=== PATIENT | male | born 1945 | race Caucasian/White ===

== ENCOUNTER 2017-09-13 12:59 | Emergency (ER) | payer OTHER ==
[~2017-09-13] VITALS: Ht 193 cm; Wt 127.0 kg
[~2017-09-13 12:59] MED LIST: ALLO300T2 PO; DIOV160T60 PO; OMEP20TA PO; SIMV80TA PO; SYMB160A INH; VENTAER INH
[2017-09-13 13:41] VITALS: BP 156/80; PULSE 91; RESP 20; TEMP 98.2; O2SAT 93
--- NOTE | 2017-09-13 16:29 | PD ---
HPI Chief Complaint: Pain: Acute or Chronic Time Seen by Provider: 16:29 Travel History International Travel<30 days: No Contact w/Intl Traveler<30days: No Traveled to known affect area: No History of Present Illness HPI 71-year-old male presents emergency department with injury to the left hand and wrist. Patient states he tripped and fell last evening with a FOOSH type injury to the left hand and wrist. He now has pain mainly in the ulnar aspect of the wrist. He denies numbness, tingling, or decreased strength only from pain. He denies left elbow or shoulder pain. He denies hitting his head or other complaints of muscle skeletal pain. Pain in the left wrist is 8 out of 10. Patient has history of recurrent gout. He is on allopurinol. He is allergic to colchicine, diclofenac, and tramadol. PFSH Past Medical History Cancer: No High Cholesterol: Yes Diabetes: No Gout: Yes Hepatitis: No Hiatal Hernia: No Hypertension: Yes Respiratory: Yes (COPD) Thyroid Disease: No Past Surgical History Abdominal Surgery: Yes (GASTRECTOMY) Other Surgery: Yes (FB FROM FOOT, BOILS REMOVED FROM FACE, LAC REPAIR RIGHT WRIST.) Social History Alcohol Use: Yes (6 BEERS A DAY NONE SINCE 08/22/09.) Tobacco Use: Yes (1 TO 2 PACKS A DAY) Substance Use: No Allergies-Medications (Allergen,Severity, Reaction): Coded Allergies: colchicine (Unverified Allergy, Severe, GASTRIC EROSION, EDEMA, 09/13/17) diclofenac (Unverified Allergy, Severe, GASTRIC EROSION, 09/13/17) tramadol (Unverified Allergy, Severe, VERTIGO, 09/13/17) Reported Meds & Prescriptions Reported Meds & Active Scripts Active Tramadol (Tramadol HCl) 50 Mg Tab 50 Mg PO Q6H PRN Reported Diovan 160 mg (Valsartan) 160 Mg Tab 160 Mg PO DAILY Simvastatin 80 mg (Simvastatin) 80 Mg Tab 40 Mg PO DAILY Omeprazole 20 mg (Omeprazole) 20 Mg Tab 20 Mg PO DAILY Symbicort (Budesonide/Formoterol Fumarate) 160 Mcg/4.5 Mcg Aer 1 Puff INH BID * SHAKE WELL BEFORE USE * Allopurinol 300 Mg Tab 300 Mg PO DAILY Ventolin Hfa (Albuterol Sulfate) 18 Gm Aero 2 Puff INH BID * SHAKE WELL BEFORE USE * Review of Systems Except as stated in HPI: all other systems reviewed are Neg General / Constitutional: No: Fever Eyes: No: Visual changes HENT: No: Headaches Cardiovascular: No: Chest Pain or Discomfort Respiratory: No: Shortness of Breath Gastrointestinal: No: Abdominal Pain Genitourinary: No: Dysuria Musculoskeletal: Positive: Arthralgias, Limited ROM, Pain Skin: No Rash Neurologic: No: Weakness Psychiatric: No: Depression Endocrine: No: Polydipsia Hematologic/Lymphatic: No: Easy Bruising Physical Exam Narrative GENERAL: Patient appears in mild to moderate distress per SKIN: Warm and dry. Normal color. Normal turgor. Patient has some erythema and swelling over the left ulnar wrist. HEAD: Atraumatic. Normocephalic. EYES: Pupils equal and round. No scleral icterus. No injection or drainage. ENT: No nasal bleeding or discharge. Mucous membranes pink and moist. Pharynx is clear. Airways patent. NECK: Trachea midline. Supple and nontender CARDIOVASCULAR: Regular rate and rhythm. RESPIRATORY: No accessory muscle use. Clear to auscultation. Breath sounds equal bilaterally. MUSCULOSKELETAL: Extremities without clubbing, cyanosis, or edema. No obvious deformities. Patient has pain and tenderness along the left dorsal ulnar wrist. Range of motion is greatly diminished secondary to pain. Neurovascular exam is within normal limits. NEUROLOGICAL: Awake and alert. No obvious cranial nerve deficits. Motor grossly within normal limits. Five out of 5 muscle strength in the arms and legs. Normal speech. PSYCHIATRIC: Appropriate mood and affect; insight and judgment normal. Data Data Last Documented VS Vital Signs Date Time Temp Pulse Resp B/P (MAP) Pulse Ox O2 Delivery O2 Flow Rate FiO2 09/13/17 13:41 98.2 91 20 156/80 (105) 93 Orders Orders Wrist, Complete ([id number]) (09/13/17 16:32) Ice/Cold Pack (09/13/17 16:32) Splinting (09/13/17 ) Sling Cradle Arm (09/13/17 ) MDM Medical Decision Making Medical Screen Exam Complete: Yes Emergency Medical Condition: Yes Differential Diagnosis Trip and fall. Left wrist sprain. Left wrist fracture Narrative Course Patient is medically stable time exam. Ice is applied to the affected area. X-ray of the left wrist is obtained No acute fracture or dislocation is noted on the x-ray. Patient is placed in a ulnar gutter splint for comfort. Patient is placed in a sling for comfort. Patient is given tramadol 50 mg 1 every 6 hours as needed pain #20. Patient to follow-up with his primary care physician in 1 week to ensure resolution. Patient see orthopedic if symptoms persist. Diagnosis Primary Impression: Unspecified sprain of left wrist, initial encounter Patient Instructions: General Instructions, Splint Care (ED), Wrist Injury (ED) Additional Instructions: No acute fracture or dislocation is noted on the x-ray. Patient is placed in a ulnar gutter splint for comfort. Patient is placed in a sling for comfort. Patient is given tramadol 50 mg 1 every 6 hours as needed pain #20. Patient to follow-up with his primary care physician in 1 week to ensure resolution. Patient see orthopedic if symptoms persist. Med/Other Pt SpecificInfo: Prescription(s) given Scripts Tramadol (Tramadol) 50 Mg Tab 50 MG PO Q6H Y for PAIN, #20 TAB 0 Refills Prov: Tony Connelly MD 09/13/17 Disposition: 01 DISCHARGE HOME Condition: Stable Mina Corbin Sep 13, 2017 16:29
[2017-09-13] MEDS ORDERED: TRAM50TA PO (17:19)
[2017-09-13] MEDS ORDERED: HYDR-3516 PO (17:27)
--- NOTE | 2017-09-13 17:39 | RADRPT ---
EXAM DATE/TIME: 09/13/2017 16:38 [facility] COMPARISON: No previous studies available for comparison. INDICATIONS : Fall wrist pain. MEDICAL HISTORY : None. SURGICAL HISTORY : None. ENCOUNTER: Initial ACUITY: 1 day PAIN SCORE: 6/10 LOCATION: Left wrist FINDINGS: There is a well-corticated bony density seen in the expected location of the ulnar styloid likely rig ht representing the residual of a prior fracture. An acute fracture is not clearly identified. The ca rpal bones are normally aligned. The radiocarpal joint is intact. CONCLUSION: Suspected deformity from prior ulnar styloid fracture with a well-corticated bony density seen in thi s region. An acute fracture is not clearly identified. Lemuel Phoenix MD on September 13, 2017 at 17:35 Board Certified Radiologist. This report was verified electronically.
== END 2017-09-13 17:50 | disposition home or self-care (01) ==
LOC: NEPD 12:59
DX: S63.502A Unspecified sprain of left wrist, initial encounter (principal); W01.0XXA Fall on same level from slipping, tripping and stumbling without subsequent striking against object, initial encounter; I10 Essential (primary) hypertension; E78.00 Pure hypercholesterolemia, unspecified; J44.9 Chronic obstructive pulmonary disease, unspecified; M10.9 Gout, unspecified; F17.210 Nicotine dependence, cigarettes, uncomplicated; Z88.8 Allergy status to other drugs, medicaments and biological substances; Z79.899 Other long term (current) drug therapy
CPT/HCPCS: 29125; 73110

== ENCOUNTER 2017-10-12 11:43 | Emergency (ER) | payer MEDICARE, OTHER ==
[~2017-10-12] VITALS: Ht 193 cm; Wt 126.0 kg
[~2017-10-12 11:43] MED LIST changes: +HYDR-3516 PO
[2017-10-12 11:51] VITALS: BP 160/75; PULSE 95; RESP 24; TEMP 98; O2SAT 94
--- NOTE | 2017-10-12 13:01 | PD ---
HPI Chief Complaint: Complaint Time Seen by Provider: 13:00 Travel History International Travel<30 days: No Contact w/Intl Traveler<30days: No Traveled to known affect area: No History of Present Illness HPI 71-year-old male came to the emergency room with history of urinary retention since yesterday morning. Patient says that he has gone only a few drops at a time but still feels like he has to go. He is uncomfortable. He says he had something similar a few years ago when he had gone to [place] and was given Levaquin. He supposed to see a urologist from [place] but has not heard back from them yet. Vital signs were otherwise stable. No history of fever or chills. No history of hematuria. Patient says the discomfort is mostly in the suprapubic area. It is worse on manual pressure on the area. PFSH Past Medical History Narrative Medical List of his past medical, surgical, social and family history is reviewed from the nursing note Cancer: No Cardiovascular Problems: No High Cholesterol: Yes Diabetes: No Gout: Yes Hepatitis: No Hiatal Hernia: No Hypertension: Yes Respiratory: Yes (COPD) Thyroid Disease: No Past Surgical History Abdominal Surgery: Yes (GASTRECTOMY) Other Surgery: Yes (FB FROM FOOT, BOILS REMOVED FROM FACE, LAC REPAIR RIGHT WRIST.) Social History Alcohol Use: Yes Tobacco Use: No Substance Use: No Allergies-Medications (Allergen,Severity, Reaction): Coded Allergies: colchicine (Unverified Allergy, Severe, GASTRIC EROSION, EDEMA, 10/12/17) diclofenac (Unverified Allergy, Severe, GASTRIC EROSION, 10/12/17) tramadol (Unverified Allergy, Severe, VERTIGO, 10/12/17) Comments List of his allergies reviewed from the nursing note. Reported Meds & Prescriptions Reported Meds & Active Scripts Active Reported Flonase Nasal Magna (Fluticasone Nasal Magna) 50 Mcg/Act Magna 100 Mcg EACH NARE BID Valsartan 160 Mg Tab 160 Mg PO DAILY Simvastatin 40 Mg Tab 40 Mg PO HS Omeprazole 20 Mg Tab 20 Mg PO DAILY Spiriva Handihaler (Tiotropium Inh) 18 Mcg Cap 18 Mcg INH DAILY 1 capsule = 18 mcg Symbicort Inh (Budesonide/Formoterol Fumarate) 160-4.5 Mcg/Act Aero 1 Puff INH Q12HR Allopurinol 300 Mg Tab 300 Mg PO DAILY Ventolin Hfa 18 GM Inh (Albuterol Sulfate) 90 Mcg/Act Aer 2 Puff INH BID PRN Narrative Medication List of his home medications reviewed from the nursing note. Review of Systems Except as stated in HPI: all other systems reviewed are Neg Genitourinary: Positive: Decreased Urinary Output Physical Exam Narrative GENERAL: Awake, alert, moderate distress SKIN: Focused skin assessment warm/dry. HEAD: Atraumatic. Normocephalic. EYES: Pupils equal and round. No scleral icterus. No injection or drainage. ENT: No nasal bleeding or discharge. Mucous membranes pink and moist. NECK: Trachea midline. No JVD. CARDIOVASCULAR: Regular rate and rhythm. No murmur appreciated. RESPIRATORY: No accessory muscle use. Clear to auscultation. Breath sounds equal bilaterally. GASTROINTESTINAL: Abdomen soft, non-tender, nondistended. Hepatic and splenic margins not palpable. MUSCULOSKELETAL: No obvious deformities. No clubbing. No cyanosis. No edema. NEUROLOGICAL: Awake and alert. No obvious cranial nerve deficits. Motor grossly within normal limits. Normal speech. PSYCHIATRIC: Appropriate mood and affect; insight and judgment normal. Data Data Last Documented VS Vital Signs Date Time Temp Pulse Resp B/P (MAP) Pulse Ox O2 Delivery O2 Flow Rate FiO2 10/12/17 14:41 10/12/17 14:33 83 16 94 Room Air 10/12/17 13:47 98.0 Orders Orders Urinalysis - C+S If Indicated (10/12/17 13:05) Complete Blood Count With Diff (10/12/17 13:05) Basic Metabolic Panel (Bmp) (10/12/17 13:05) Urinary Catheter Insert/Apply (10/12/17 13:05) Ed Discharge Order (10/12/17 14:22) Bag, Leg 32oz Sterile Large Ea (10/12/17 14:22) Labs Laboratory Tests Test 10/12/17 13:20 10/12/17 13:45 Urine Collection Type CATH Urine Color YELLOW Urine Turbidity CLEAR Urine pH 6.0 Urine Specific [place] 1.010 Urine Protein NEG mg/dL Urine Glucose (UA) NEG mg/dL Urine Ketones NEG mg/dL Urine Occult Blood NEG Urine Nitrite NEG Urine Bilirubin NEG Urine Urobilinogen 0.2 MG/DL Urine Leukocyte Esterase NEG Urine Squamous Epithelial Cells 0-2 /hpf Urine Mucus RARE /lpf Microscopic Urinalysis Comment CULT NOT INDICATED White Blood Count 8.4 TH/MM3 Red Blood Count 4.65 MIL/MM3 Hemoglobin 14.1 GM/DL Hematocrit 42.8 % Mean Corpuscular Volume 92.0 FL Mean Corpuscular Hemoglobin 30.2 PG Mean Corpuscular Hemoglobin Concent 32.8 % Red Cell Distribution Width 13.3 % Platelet Count 231 TH/MM3 Mean Platelet Volume 8.3 FL Neutrophils (%) (Auto) 72.9 % Lymphocytes (%) (Auto) 17.1 % Monocytes (%) (Auto) 5.6 % Eosinophils (%) (Auto) 3.3 % Basophils (%) (Auto) 1.1 % Neutrophils # (Auto) 6.1 TH/MM3 Lymphocytes # (Auto) 1.4 TH/MM3 Monocytes # (Auto) 0.5 TH/MM3 Eosinophils # (Auto) 0.3 TH/MM3 Basophils # (Auto) 0.1 TH/MM3 CBC Comment DIFF FINAL Differential Comment Blood Urea Nitrogen 9 MG/DL Creatinine 1.10 MG/DL Random Glucose 115 MG/DL Calcium Level 8.8 MG/DL Sodium Level 141 MEQ/L Potassium Level 3.5 MEQ/L Chloride Level 109 MEQ/L Carbon Dioxide Level 25.5 MEQ/L Anion Gap 7 MEQ/L Estimat Glomerular Filtration Rate 66 ML/MIN MDM Medical Decision Making Medical Screen Exam Complete: Yes Emergency Medical Condition: Yes Medical Record Reviewed: Yes Differential Diagnosis Urinary retention, BPH, UTI Narrative Course 1:40 PM I have asked the nurse to put a Thomas catheter. Awaiting for an UA and blood test results. 2:22 PM labs are back and within acceptable limits. I will discharge him home with a leg bag. Patient has made more than 600 mL's of urine so far. He says he feels much better. Procedures EKG Prior to Arrival: No Diagnosis Primary Impression: Urinary retention Referrals: Deep Cartagena MD Additional Instructions: Take care of the catheter and the leg bag as instructed to you by the nurse. Follow-up with urology either at [place] or the name and number that has been provided to you from us in this discharge instructions. Return to the ER if condition worsens or any other new concerns. Disposition: 01 DISCHARGE HOME Condition: Stable Chanell Heart MD October 12, 2017 13:01
[2017-10-12 13:41] LABS: BILIRUBIN, URINE NEG (NEG); BLOOD, URINE NEG (NEG); GLUCOSE,URINE NEG (NEG); KETONE, URINE NEG (NEG); NITRITE,URINE NEG (NEG); URINE COLOR YELLOW (YELLW/STRAW); URINE LEUKOCYTE ESTERASE NEG (NEG)
[2017-10-12 13:47] VITALS: BP 160/75; PULSE 95; RESP 16; TEMP 98; O2SAT 94
[2017-10-12] MEDS ORDERED: OMEP20TA93 PO (14:03)
[2017-10-12] MEDS ORDERED: SPIRCAP INH (14:03)
[2017-10-12] MEDS ORDERED: FLUT1SPR5 EACH NARE (14:03)
[2017-10-12] MEDS ORDERED: SYMB160A INH (14:03)
[2017-10-12] MEDS ORDERED: SIMV40TA PO (14:03)
[2017-10-12] MEDS ORDERED: VENTAER INH (14:03)
[2017-10-12] MEDS ORDERED: VALS1TAB65 PO (14:03)
[2017-10-12] MEDS ORDERED: ALLO300T2 PO (14:03)
[2017-10-12 14:05] LABS: AUTOMATED NEUTROPHIL # 6.1 TH/MM3 (1.8-7.7); BASOPHIL # 0.1 TH/MM3 (0-0.2); BASOPHIL % 1.1 % (0.0-2.0); EOSINOPHIL # 0.3 TH/MM3 (0-0.4); EOSINOPHIL % 3.3 % (0.0-4.0); HEMATOCRIT 42.8 % (39.0-51.0); HEMOGLOBIN 14.1 GM/DL (13.0-17.0); LYMPH % 17.1 % (9.0-44.0); LYMPHOCYTE # 1.4 TH/MM3 (1.0-4.8); MEAN CORPUSCULAR HEMOGLOBIN 30.2 PG (27.0-34.0); MEAN CORPUSCULAR HGB CONC 32.8 % (32.0-36.0); MEAN PLATELET VOLUME 8.3 FL (7.0-11.0); MONO % 5.6 % (0.0-8.0); MONOCYTE # 0.5 TH/MM3 (0-0.9); NEUT % 72.9 % (16.0-70.0); PLATELET COUNT 231 TH/MM3 (150-450); RED BLOOD COUNT 4.65 MIL/MM3 (4.50-5.90); RED CELL DISTRIBUTION WIDTH 13.3 % (11.6-17.2); WHITE BLOOD COUNT 8.4 TH/MM3 (4.0-11.0)
[2017-10-12 14:08] LABS: MUCUS URINE RARE /lpf (OCC); SQUAMOUS EPITHELIAL CELL URINE 0-2 /hpf (0-5)
[2017-10-12 14:17] LABS: CALCIUM 8.8 MG/DL (8.5-10.1)
[2017-10-12 14:18] LABS: BICARBONATE 25.5 MEQ/L (21.0-32.0)
[2017-10-12 14:21] LABS: CREATININE 1.1 MG/DL (0.60-1.30)
[2017-10-12 14:33] VITALS: BP 124/67; PULSE 83; RESP 16; O2SAT 94
== END 2017-10-12 14:41 | disposition home or self-care (01) ==
LOC: PHED 11:43
DX: R33.9 Retention of urine, unspecified (principal); I10 Essential (primary) hypertension; J44.9 Chronic obstructive pulmonary disease, unspecified
CPT/HCPCS: 51702; 80048; 81001; 85025

== ENCOUNTER 2018-04-16 20:03 | Inpatient (IN) ==
[2018-04-16] MEDS ORDERED: Tetanus/Diphtheria Toxoid Adult Vaccine Inj 0.5 ML Vial IM ONE (20:19)
[2018-04-16] MEDS ORDERED: ceFAZolin 2 GM Premix Inj 2 GM/50 ML PIGGYBACK IV.SIG ONE (20:20)
[2018-04-16] MEDS ORDERED: Morphine Sulfate Inj 8 MG/ML Vial IV.PUSH ONE (20:22)
--- NOTE | 2018-04-16 20:31 | ED ---
HPI General Chief Complaint: Fall Stated Complaint: Fall/Leg pain Time Seen by Provider: 04/16/18 20:10 Source: patient and EMS Mode of arrival: EMS Limitations: physical limitation History of Present Illness HPI Narrative: Mr Ambriz is a 72 year old male who presents to the ED via EMS with an open left ankle open fracture after a fall at his home. The patient states that he slipped on his terrazzo floors while wearing tennis shoes and fell, although he does not remember the way in which he fell and the lower leg/ ankle injury occurred. He denies dizziness, lightheadedness, or syncope prior to the fall. He denies head trauma or LOC, and denies pain in the back, hips, head, or upper extremities. Upon EMS arrival the left lower leg was angulated, and it was returned to a position of function before transport by [facility]. The patient states his pain was a 5/10 but is now a 6-7/10. He denied pain medication during transport. The patient's PMH is significant for HTN and COPD. He denies drug allergies and his last meal was at 1pm today. He denies any previous injuries to this area. He denies taking any blood thinners. No head injury or loss of consciousness. Denies any pain in any other extremity. Patient still having some numbness. MD complaint: Reports fall Fall from: standing Loss of consciousness: none Symptoms prior to fall: Reports none Location of injury - extremities: Right: lower leg and ankle Related Data Home Medications Medication Instructions Recorded Confirmed Unable to Obtain Home Meds 04/16/18 04/16/18 Allergies Allergy/AdvReac Type Severity Reaction Status Date / Time colchicine Allergy Severe GASTRIC Unverified 04/16/18 20:20 EROSION, EDEMA diclofenac Allergy Severe GASTRIC Unverified 04/16/18 20:20 EROSION tramadol Allergy Severe VERTIGO Unverified 04/16/18 20:20 Review of Systems ROS: all other systems reviewed are negative PMFSH History History Provided By: Patient and Instructor Adjunct Pharmacy Technician / EMT Medical History Medical History Abdominal hernia (Acute) COPD (chronic obstructive pulmonary disease) (Acute) FH: total knee replacement (Acute) GERD (gastroesophageal reflux disease) (Acute) Gout (Acute) Hypertension (Acute) Surgical History Surgical History H/O resection of stomach (Acute) Social History Social History Substance History: No History of Abuse Second Hand Smoke Exposure: No Smoking Status: Former smoker How Often Do You Have a Drink Containing Alcohol: 4 or more times a week Recent Travel in [facility] within the Last 8 Weeks: No Recent Out of Country Travel within the Last 8 Weeks: No Exam Narrative Exam Narrative: GENERAL: Patient is a well developed well nourished male in moderate distress. SKIN: Warm and dry. Patient has an opening on the medial aspect of the left ankle of about 5 cm with piece of the bone of what appears to be the tibia coming out of it. Hard to assess the posterior tibialis pulse. Bleeding noted but minimal. HEAD: Atraumatic. Normocephalic. EYES: Pupils equal and round. No scleral icterus. No injection or drainage. ENT: No nasal bleeding or discharge. Mucous membranes pink and moist. Tongue is midline. No uvula deviation. NECK: Trachea midline. No JVD. CARDIOVASCULAR: Regular rate and rhythm. No murmurs rubs or gallops. RESPIRATORY: No accessory muscle use. Clear to auscultation. Breath sounds equal bilaterally. GASTROINTESTINAL: Abdomen soft, non-tender, nondistended. Hepatic and splenic margins not palpable. MUSCULOSKELETAL: Open fracture of the tibia on the left. Diminished sensation to the left foot. 2 + DP pulse on the left foot. Pain with palpation to the lower leg above the fracture. No pain with palpation of the head or cervical, thoracic, or lumbar spine. No pain with palpation of the upper left leg or left hip. No pain with palpation of the pelvis. NEUROLOGICAL: Awake and alert. No obvious cranial nerve deficits. Motor grossly within normal limits. Five out of 5 muscle strength in the arms and left leg. Normal speech. PSYCHIATRIC: Appropriate mood and affect; insight and judgment normal. Course Initial Documented Vital Signs Temperature 97.8 F 04/16/18 20:11 Pulse Rate 90 04/16/18 20:11 Respiratory Rate 22 04/16/18 20:11 Blood Pressure 152/76 H 04/16/18 20:11 Pulse Oximetry 95 04/16/18 20:11 Last Documented Vital Signs Temperature 97.8 F 04/16/18 20:11 Pulse Rate 113 H 04/16/18 21:02 Respiratory Rate 22 04/16/18 20:11 Blood Pressure 152/76 H 04/16/18 20:11 Pulse Oximetry 95 04/16/18 20:11 Medical Decision Making LENNY Attestation LENNY supervised visit: Yes Attestation: I, Dr. Castellano, have reviewed the advance practice practitioner's documentation and am in agreement, met with the patient face to face, made the diagnosis, and the medical decision making was done by me. See his note for further details. This is a 72-year-old male who was brought in by ambulance for evaluation of fracture/dislocation. Patient reports that he slipped on the surface in his home. He denies head injury or LOC. He experienced immediate pain to his left ankle and was unable to bear weight. He denies pain anywhere else. His pain is severe. He crawled to a telephone and dial 911. Upon enterprise architect arrival, they noticed that the foot appeared to be pulseless with obvious open deformity , so they attempted to reduce the ankle joint. Upon arrival to the emergency department the patient's left ankle is in a makeshift splint. He does have a strong left dorsalis pedis pulse. There is an approximately 7 cm laceration to the medial aspect of the ankle with protruding distal tibia with lacerated tendons noted as well. Patient was given morphine. The exposed bone was irrigated, and reduction was attempted by me, however was unsuccessful. At 8: 50 PM I was able to discuss the case with the on-call orthopedist Dr. Davis who plans on taking the patient to the OR tonight for ORIF. Patient was given Ancef and tetanus here in the emergency department. When explaining the plan with the patient and asking when his last oral intake was, he tells me that he last ate at noon today, however he drinks alcohol daily, drinking 3 beers per hour while awake. His last drink was at 7:00 PM. MDM Narrative Medical decision making narrative: 72-year-old male who presents to the ED for evaluation of left ankle injury. Patient was properly examined and was found to have signs and symptoms consistent with appears to be a open tib-fib fracture with dislocation. My attending Dr. Castellano was made aware of findings and immediately evaluated the patient. Labs and imaging were ordered. Patient was started on IV antibiotics and pain medication. Given tetanus booster. Maintaining himself attempted to reduce the fracture with minimal success. My attending himself spoke with the orthopedic surgeon substation operator conversion who wants to take the patient to the OR tonight. Wants the patient admitted to the medical team. Dr Carrasco agrees to admission to her service. Medical Screen Exam Complete: Yes Emergency Medical Condition: Yes Differential Diagnosis Differential Diagnosis: Open fracture versus tib-fib fracture versus fracture dislocation versus trauma Medical Records Medical records reviewed: Yes I reviewed the patient's medical records. Lab Data Lab results reviewed: Yes I reviewed the patient's lab results. Result diagrams: 04/16/18 20:37 04/16/18 20:37 Lab Results 04/16/18 04/16/18 04/16/18 Range/Units 20:37 20:37 20:37 WBC 19.6 H (4.0-11.0) th/mm3 RBC 4.58 (4.50-5.90) mil/mm3 Hgb 14.9 (13.0-17.0) gm/dL POC Hgb (Calc) Cancelled Hct 44.3 (39.0-51.0) % POC Hct Cancelled MCV 96.7 (80.0-100.0) fL MCH 32.6 (27.0-34.0) pg MCHC 33.7 (32.0-36.0) % RDW 14.2 (11.6-17.2) % Plt Count 205 (150-450) th/mm3 MPV 8.7 (7.0-11.0) fL Neut % (Auto) 86.7 H (16.0-70.0) % Lymph % (Auto) 7.7 L (9.0-44.0) % Mower % (Auto) 5.0 (0.0-8.0) % Eos % (Auto) 0.3 (0.0-4.0) % Baso % (Auto) 0.3 (0.0-2.0) % Neut # (Auto) 17.0 H (1.8-7.7) th/mm3 Lymph # (Auto) 1.5 (1.0-4.8) th/mm3 Mower # (Auto) 1.0 H (0.0-0.9) th/mm3 Eos # (Auto) 0.1 (0.0-0.4) th/mm3 Baso # (Auto) 0.1 (0.0-0.2) th/mm3 WBC Differential . Differential Comment Auto diff final PT 10.5 (9.8-11.6) sec INR 1.0 Ratio APTT 25.4 (23.4-31.7) sec POC Sodium Cancelled Sodium (136-145) meq/L POC Potassium Cancelled Potassium (3.5-5.1) meq/L POC Chloride Cancelled Chloride (98-107) meq/L Carbon Dioxide (21.0-32.0) meq/L Anion Gap (5-15) meq/L POC BUN Cancelled BUN (7-18) mg/dL Creatinine (0.60-1.30) mg/dL POC Creatinine Cancelled Estimated GFR (>89) mL/min POC Glucose Cancelled Random Glucose (74-106) mg/dL Calcium (8.5-10.1) mg/dL Blood Type 04/16/18 04/16/18 Range/Units 20:37 20:37 WBC (4.0-11.0) th/mm3 RBC (4.50-5.90) mil/mm3 Hgb (13.0-17.0) gm/dL POC Hgb (Calc) Hct (39.0-51.0) % POC Hct MCV (80.0-100.0) fL MCH (27.0-34.0) pg MCHC (32.0-36.0) % RDW (11.6-17.2) % Plt Count (150-450) th/mm3 MPV (7.0-11.0) fL Neut % (Auto) (16.0-70.0) % Lymph % (Auto) (9.0-44.0) % Mower % (Auto) (0.0-8.0) % Eos % (Auto) (0.0-4.0) % Baso % (Auto) (0.0-2.0) % Neut # (Auto) (1.8-7.7) th/mm3 Lymph # (Auto) (1.0-4.8) th/mm3 Mower # (Auto) (0.0-0.9) th/mm3 Eos # (Auto) (0.0-0.4) th/mm3 Baso # (Auto) (0.0-0.2) th/mm3 WBC Differential Differential Comment PT (9.8-11.6) sec INR Ratio APTT (23.4-31.7) sec POC Sodium Sodium 140 (136-145) meq/L POC Potassium Potassium 4.0 (3.5-5.1) meq/L POC Chloride Chloride 107 (98-107) meq/L Carbon Dioxide 20.8 L (21.0-32.0) meq/L Anion Gap 12 (5-15) meq/L POC BUN BUN 14 (7-18) mg/dL Creatinine 1.33 H (0.60-1.30) mg/dL POC Creatinine Estimated GFR 53 L (>89) mL/min POC Glucose Random Glucose 98 (74-106) mg/dL Calcium 8.3 L (8.5-10.1) mg/dL Blood Type A Positive Imaging Data Attestation: I personally reviewed and interpreted this imaging study as follows : Radiologist's impression: Chest X-Ray 04/16/18 20:12 CONCLUSION: No acute cardiopulmonary disease. Foot X-Ray 04/16/18 20:12 CONCLUSION: There is a fracture and posterior joint dislocation at the mortise joint. Tibia/Fibula X-Ray 04/16/18 20:12 CONCLUSION: Ankle fracture dislocation. ECG Data Attestation: I personally reviewed and interpreted this ECG as follows: Interpretation: EKG shows sinus tachycardia in the ventricular rate of 106 bpm but no sign of acute ischemia and arrhythmia read by me and attending. Discharge Plan Discharge Disposition Patient Disposition: 30 Still Patient Discharge Details Diagnosis: Ankle fracture, left Physicians Team ED Provider: Tobias Castellano ED Midlevel Provider: Mahad Santiago Primary Care Provider: [facility],Physician 's Attending Provider: Clotilde Carrasco Status ED Status: Admitted Patient
[2018-04-16] MEDS ORDERED: Haloperidol Inj 5 MG/ML Ampul IV.PUSH PRN ×2 (21:16→21:27)
[2018-04-16] MEDS ORDERED: LORazepam 1 MG Tablet PO PRN ×2 (21:16→21:27)
--- NOTE | 2018-04-16 21:20 | XR ---
EXAM DATE: 04/16/2018 9:17 PM EST AGE/SEX: 72 years / Male INDICATIONS: Chest pain after fall. CLINICAL DATA: This is the patient's initial encounter. Patient reports that signs and symptoms have been present for 1 day and indicates a pain score of 10/10. MEDICAL/SURGICAL HISTORY: Chronic obstructive pulmonary disease. . Stomach surgery. COMPARISON: [facility] – [place], CHEST SINGLE AP, 09/28/2011. . FINDINGS: 2 AP erect portable views of the chest were obtained and demonstrate no confluent infiltrates or effu sions. The heart size is at the upper limits of normal with no perihilar edema. The bony thorax is in tact in appearance. There are overlying electrocardiogram leads. CONCLUSION: No acute cardiopulmonary disease. Electronically signed by: Dick Caruso MD 04/16/2018 9:19 PM EST
[2018-04-16 21:21] LABS: Activated Partial Thrombo Time 25.4 sec (23.4-31.7); Prothrombin Time 10.5 sec (9.8-11.6)
--- NOTE | 2018-04-16 21:24 | XR ---
EXAM DATE: 04/16/2018 9:19 PM EST AGE/SEX: 72 years / Male INDICATIONS: Fall, complains of left tibia pain. CLINICAL DATA: This is the patient's initial encounter. Patient reports that signs and symptoms have been present for 1 day and indicates a pain score of 10/10. MEDICAL/SURGICAL HISTORY: Chronic obstructive pulmonary disease. . Stomach surgery. COMPARISON: No prior exams available for comparison. FINDINGS: Multiple views of the left tibia and fibula were obtained and demonstrate that the patient is status post left knee arthroplasty. The arthroplasty components appear intact and in normal alignment. There is a fracture dislocation at the level the ankle with transverse fracture through the medial malleol us and distal fibula. The talus and foot are dislocated laterally approximately 4 cm. There is mild o verriding. The talus and foot are angulated approximately 45 degrees with respect to the tibia. The d istal medial malleolar fracture fragment and distal fibular fracture fragments are also dislocated la terally. There is extensive soft tissue swelling. The talus appears grossly intact. There is diffuse osteopenia. CONCLUSION: Ankle fracture dislocation. Electronically signed by: Dick Caruso MD 04/16/2018 9:22 PM EST
--- NOTE | 2018-04-16 21:26 | XR ---
EXAM DATE: 04/16/2018 9:21 PM EST AGE/SEX: 72 years / Male INDICATIONS: Fall, complains of left foot pain. CLINICAL DATA: This is the patient's initial encounter. Patient reports that signs and symptoms have been present for 1 day and indicates a pain score of 10/10. MEDICAL/SURGICAL HISTORY: Chronic obstructive pulmonary disease. . Stomach surgery. COMPARISON: No prior exams available for comparison. FINDINGS: Limited 2 views of the foot were performed. There is a fracture dislocation at the level of the ankle joint. The talus bone is dislocated posteriorly. There is a large bony fragment most likely from the posterior malleolus. There are moderate degenerative changes involving the mid tarsal bones. There i s a prominent heel spur present. Metatarsals are grossly intact. CONCLUSION: There is a fracture and posterior joint dislocation at the mortise joint. Electronically signed by: Patrice Johnson MD 04/16/2018 9:24 PM EST
[2018-04-16] MEDS ORDERED: Bisacodyl 10 MG Supp RECTAL PRN (21:29)
[2018-04-16] MEDS ORDERED: Acetaminophen 325 MG Tablet PO PRN (21:29)
[2018-04-16] MEDS ORDERED: Sod Chloride 0.9% Inj 1,000 ML IV.SIG SCH (21:30)
--- NOTE | 2018-04-16 21:31 | P.HPIM ---
History of Present Illness History of Present Illness: This is a 72-year-old male with PMH of HTN, COPD and Alcohol Abuse who was brought to the ER by EMS after fall with open left ankle fracture. Pt denies LOC or head trauma, states he simply slipped and fell. On arrival, BP 152/76, HR 90, O2 sat 95% on RA, Afebrile. WBC 19.6. INR 1.0. Creatinine 1.33, previously 1.10 on 10/12/2017. CXR with no acute findings. Foot X-ray fracture and posterior joint dislocation at the mortise joint. Tib-fib X-ray ankle fracture dislocation. Ortho consulted, plan is for surgical intervention tonight. Admits to drinking approx 2-3 drinks every hour that he's awake. - Diagnosis (1) Fall (2) Ankle fracture (3) Alcohol abuse (4) LACI (acute kidney injury) (5) Leukocytosis Inpatient Certification: I certify that the inpatient services were ordered in accordance with Medicare regulations governing the order. This includes certification that hospital inpatient services are reasonable and necessary and in the case of services not specified as inpatient-only under 42 CFR 419.22(n), that they are appropriately provided as inpatient services in accordance to with the 2-midnight benchmark under 43 CFR 412.3(e) Estimated Total Length of Stay (Days): 2 Plans for Post Hospital Care: Not yet determined Review of Systems PAST FAMILY HISTORY: Reviewed. No h/o DM or CAD All other systems reviewed negative except as stated in HPI PMFSH - History History Provided By: Patient, Field Contact Person / EMT - Medical History Medical History: Medical History (Last Reviewed 04/16/18 @ 21:50 by JEANNETTE Jara) Abdominal hernia COPD (chronic obstructive pulmonary disease) FH: total knee replacement GERD (gastroesophageal reflux disease) Gout Hypertension - Surgical History Surgical History: Surgical History (Last Reviewed 04/16/18 @ 21:50 by JEANNETTE Jara) H/O resection of stomach - Tobacco History Second Hand Smoke Exposure: No Tobacco Use In Past 30 Days: No Smoking Status: Former smoker - Alcohol History How Often Do You Have a Drink Containing Alcohol: 4 or more times a week - Substance Use History Substance History: No History of Abuse - Travel History Recent Travel in the [place] Within the Last 8 Weeks: No Recent Travel Out of the Country Within the Last 8 Weeks: No - Immunization History Tetanus Immunization: <5 Years Tetanus Immunization Year if Known: 2017 Medications and Allergies Active Medications: Active Medications Flumazenil (Romazecon Inj) 0.2 mg IV.PUSH Q1M PRN PRN Reason: OVERSEDATION Haloperidol Lactate (Haldol Inj) 1 mg IV.PUSH Q15M PRN PRN Reason: for severe agitation Sodium Chloride (Ns Inj) 1,000 mls @ 1,000 mls/hr IV.SIG BOLUS YVSE Stop: 04/16/18 22:29 Last Admin: 04/16/18 21:24 Dose: 1,000 mls/hr Lorazepam (Ativan Inj) 1 mg IV.PUSH Q4H PRN PRN Reason: for CIWA 8-10 Lorazepam (Ativan Inj) 2 mg IV.PUSH Q15M PRN PRN Reason: for CIWA > 20 Lorazepam (Ativan Inj) 2 mg IV.PUSH Q1H PRN PRN Reason: for CIWA 15-20 Lorazepam (Ativan Inj) 2 mg IV.PUSH Q2H PRN PRN Reason: for CIWA 11-14 Lorazepam (Ativan) 1 mg PO Q4H PRN PRN Reason: for CIWA 8-10 Lorazepam (Ativan) 2 mg PO Q2H PRN PRN Reason: for CIWA 11-14 Allergies Allergy/AdvReac Type Severity Reaction Status Date / Time colchicine Allergy Severe GASTRIC Unverified 04/16/18 20:20 EROSION, EDEMA diclofenac Allergy Severe GASTRIC Unverified 04/16/18 20:20 EROSION tramadol Allergy Severe VERTIGO Unverified 04/16/18 20:20 Home Medications Medication Instructions Recorded Confirmed Type Unable to Obtain Home Meds 04/16/18 04/16/18 History Exam Vital signs: Vital Signs 04/16/18 20:11 04/16/18 21:02 Temperature 97.8 F Pulse Rate 90 113 H Respiratory Rate 22 Blood Pressure 152/76 H Pulse Oximetry 95 Intake & Output 04/16/18 04/16/18 04/17/18 06:59 18:59 06:59 Intake Total 50 / 50 Balance 50 / 50 Weight 130.635 kg Intake: IV 50 / 50 Ancef 2 GM Premix Inj 2 gm In 50 / 50 50 ml @ 100 mls/hr IV.SIG ONCE ONE Rx#:[id number] Narrative: PE: GENERAL: Elderly white male in no acute distress. SKIN: Focused skin assessment warm and dry. HEENT: PERRLA, EOMI. No scleral icterus or conjunctival pallor. No lid lag or facial droop. CARDIOVASCULAR: Regular rate and rhythm. No obvious murmurs to auscultation. No chest tenderness to palpation. RESPIRATORY: No obvious rhonchi or wheezing. Clear to auscultation. Breath sounds equal bilaterally. GASTROINTESTINAL: Abdomen soft, non-tender, nondistended. BS normal. MUSCULOSKELETAL: Extremities without clubbing, cyanosis, or edema. Left ankle w / obvious deformity, open fracture NEUROLOGICAL: Awake, alert and oriented x4. No focal neurologic deficits. Moving both upper and lower extremities spontaneously. PSYCHIATRIC: Appropriate mood and affect. Insight and judgment normal. Results - Labs CBC & Chem 7: 04/16/18 20:37 04/16/18 20:37 - Imaging Impressions Chest X-Ray 04/16/18 20:12 CONCLUSION: No acute cardiopulmonary disease. Foot X-Ray 04/16/18 20:12 CONCLUSION: There is a fracture and posterior joint dislocation at the mortise joint. Tibia/Fibula X-Ray 04/16/18 20:12 CONCLUSION: Ankle fracture dislocation. Caprini VTE Risk Assessment Caprini VTE Risk Assessment: No/Low Risk (score <= 1) Caprini Risk Assessment Model: Point Value = 1 Point Value = 2 Point Value = 3 Point Value = 5 Age 41-60 Minor surgery BMI > 25 kg/m2 Swollen legs Varicose veins or History of unexplained or recurrent spontaneous Oral contraceptives or hormone replacement Sepsis (< 1 month) Serious lung disease, including pneumonia (< 1 month) Abnormal pulmonary function Acute myocardial infarction Congestive heart failure (< 1 month) History of inflammatory bowel disease Medical patient at bed rest Age 61-74 Arthroscopic surgery Major open surgery (> 45 min) Laparoscopic surgery (> 45 min) Malignancy Confined to bed (> 72 hours) Immobilizing plaster cast Central venous access Age >= 75 History of VTE Family history of VTE Factor V Leiden Prothrombin [id number] Lupus anticoagulant Anticardiolipin antibodies Elevated serum homocysteine Heparin-induced thrombocytopenia Other congenital or acquired thrombophilia Stroke (< 1 month) Elective arthroplasty Hip, pelvis, or leg fracture Acute spinal cord injury (< 1 month) Prophylaxis Regimen: Total Risk Factor Score Risk Level Prophylaxis Regimen 0-1 Low Early ambulation 2 Moderate Order ONE of the following: *Sequential Compression Device (SCD) *Heparin 5000 units SQ BID 3-4 Higher Order ONE of the following medications: *Heparin 5000 units SQ TID *Enoxaparin/Lovenox 40 mg SQ daily (WT < 150 kg, CrCl > 30 mL/min) *Enoxaparin/Lovenox 30 mg SQ daily (WT < 150 kg, CrCl > 10-29 mL/min) *Enoxaparin/Lovenox 30 mg SQ BID (WT < 150 kg, CrCl > 30 mL/min) AND/OR *Sequential Compression Device (SCD) 5 or more Highest Order ONE of the following medications: *Heparin 5000 units SQ TID (Preferred with Epidurals) *Enoxaparin/Lovenox 40 mg SQ daily (WT < 150 kg, CrCl > 30 mL/min) *Enoxaparin/Lovenox 30 mg SQ daily (WT < 150 kg, CrCl > 10-29 mL/min) *Enoxaparin/Lovenox 30 mg SQ BID (WT < 150 kg, CrCl > 30 mL/min) AND *Sequential Compression Device (SCD) Assessment and Plan - Assessment (1) Fall Code(s): W19.XXXA - Unspecified fall, initial encounter Status: Acute (2) Ankle fracture Code(s): S82.899A - Other fracture of unspecified lower leg, initial encounter for closed fracture Status: Acute (3) Alcohol abuse Code(s): F10.10 - Alcohol abuse, uncomplicated Status: Acute (4) LACI (acute kidney injury) Code(s): N17.9 - Acute kidney failure, unspecified Status: Acute (5) Leukocytosis Code(s): D72.829 - Elevated white blood cell count, unspecified Status: Acute - Plan A/P: 1. Fall: reports mechanical fall after slipping on terrazo tile, no LOC or head trauma reported, no other injuries noted. 2. Left Ankle Fx: Open. Foot X-ray with fracture and posterior joint dislocation at mortise joint, Tib-fib X-ray with ankle fracture dislocation. Ortho consulted, plan is for emergent surgical intervention tonight, NPO, IVF, analgesics/antiemetics. 3. Alcohol Abuse: admits to having 2-3 drinks/hour while he's awake, very high risk for withdrawal, CIWA, Seizure Precautions, MVT/Thiamine/Folate replacement. 4. Leukocytosis: WBC 19, likely stress reaction, no evidence of infection, afebrile, CXR w/ no acute findings, will repeat labs in am. 5. LACI: Creatinine 1.33, previously 1.10 on 10/12/17, IVF for hydration, repeat labs in am, monitor I/O. 6. DVT Prophylaxis: Anticoagulation post op 7. Social work for d/c planning as needed. 8. Case discussed w/ ER physician at length, labs/records/imaging reviewed by me.
[2018-04-16 21:44] LABS: Baso # (Auto) 0.1 th/mm3 (0.0-0.2); Baso % (Auto) 0.3 % (0.0-2.0); Eos # (Auto) 0.1 th/mm3 (0.0-0.4); Eos % (Auto) 0.3 % (0.0-4.0); Hematocrit 44.3 % (39.0-51.0); Hemoglobin 14.9 gm/dL (13.0-17.0); Lymph # (Auto) 1.5 th/mm3 (1.0-4.8); Lymph % (Auto) 7.7 % (9.0-44.0); Mean Corpuscular HGB Conc 33.7 % (32.0-36.0); Mean Corpuscular Hemoglobin 32.6 pg (27.0-34.0); Mean Corpuscular Volume 96.7 fL (80.0-100.0); Mean Platelet Volume 8.7 fL (7.0-11.0); Neut % (Auto) 86.7 % (16.0-70.0); Platelet Count 205 th/mm3 (150-450); Red Blood Count 4.58 mil/mm3 (4.50-5.90); Red Cell Distribution Width 14.2 % (11.6-17.2); White Blood Count 19.6 th/mm3 (4.0-11.0)
[2018-04-16 21:50] LABS: Calcium 8.3 mg/dL (8.5-10.1); Carbon Dioxide 20.8 meq/L (21.0-32.0)
--- NOTE | 2018-04-16 21:55 | P.CONOP ---
[facility] Orthopedics Consult Note - [facility] Consult date: 04/16/18 Requesting physician: Mahad Santiago Consult reason: fracture Chief complaint: Fall/Leg pain Narrative: 72 year old male presents to the ED after a fall at home where he sustained an open fracture dislocation of the left ankle. He denies losing consciousness prior to the fall. He endorses pain in the left ankle. He it is worse with movement and better with morphine. He has some numbness to the toes. Denies other injury. Review of Systems All other systems reviewed negative except as stated in [facility] PMFSH - History History Provided By: Patient, Agricultural Lender / EMT - Medical History Medical History: Medical History (Last Reviewed 04/16/18 @ 21:50 by Geni Davis MD) Abdominal hernia COPD (chronic obstructive pulmonary disease) FH: total knee replacement GERD (gastroesophageal reflux disease) Gout Hypertension - Surgical History Surgical History: Surgical History (Last Reviewed 04/16/18 @ 21:50 by Geni Davis MD) H/O resection of stomach - Social History I have reviewed the patient's Social History: Yes - Tobacco History Second Hand Smoke Exposure: No Tobacco Use In Past 30 Days: No Smoking Status: Former smoker - Alcohol History How Often Do You Have a Drink Containing Alcohol: 4 or more times a week - Substance Use History Substance History: No History of Abuse - Travel History Recent Travel in the [place] Within the Last 8 Weeks: No Recent Travel Out of the Country Within the Last 8 Weeks: No - Immunization History Tetanus Immunization: <5 Years Tetanus Immunization Year if Known: 2018 Medications and Allergies Active Medications: Active Medications Acetaminophen (Tylenol) 650 mg PO Q4H PRN PRN Reason: Temp > 100.4 Al Hydroxide/Mg Hydroxide (Milk Of Magnsrikanth Liq) 30 ml PO Q12H PRN PRN Reason: Mild Constipation Bisacodyl (Dulcolax Supp) 10 mg RECTAL DAILY PRN PRN Reason: SEVERE CONSITIPATION Flumazenil (Romazecon Inj) 0.2 mg IV.PUSH Q1M PRN PRN Reason: OVERSEDATION Folic Acid (Folic Acid) 1 mg PO DAILY YVES Stop: 04/22/18 08:59 Haloperidol Lactate (Haldol Inj) 1 mg IV.PUSH Q15M PRN PRN Reason: for severe agitation Sodium Chloride (Ns Inj) 1,000 mls @ 1,000 mls/hr IV.SIG BOLUS [facility] Stop: 04/16/18 22:29 Last Admin: 04/16/18 21:24 Dose: 1,000 mls/hr Thiamine HCl 100 mg/ Sodium (Chloride) 101 mls @ 100 mls/hr IV.SIG DAILY [facility] Stop: 04/19/18 21:27 Sodium Chloride (Ns Inj) 1,000 mls @ 100 mls/hr IV.CONT .Q10H YVES Lactulose (Lactulose Liq) 30 ml PO DAILY PRN PRN Reason: SEVERE CONSITIPATION Lorazepam (Ativan) 1 mg PO Q4H PRN PRN Reason: for CIWA 8-10 Lorazepam (Ativan) 2 mg PO Q2H PRN PRN Reason: for CIWA 11-14 Lorazepam (Ativan Inj) 2 mg IV.PUSH Q2H PRN PRN Reason: for CIWA 11-14 Lorazepam (Ativan Inj) 2 mg IV.PUSH Q1H PRN PRN Reason: for CIWA 15-20 Lorazepam (Ativan Inj) 1 mg IV.PUSH Q4H PRN PRN Reason: for CIWA 8-10 Lorazepam (Ativan Inj) 2 mg IV.PUSH Q15M PRN PRN Reason: for CIWA > 20 Morphine Sulfate (Morphine Inj) 2 mg IV.PUSH Q4H PRN PRN Reason: PAIN 6-10 Multivitamins/Minerals (Theragran-M) 1 tab PO DAILY [facility] Stop: 04/22/18 08:59 Ondansetron HCl (Zofran Inj) 4 mg IV.PUSH Q6H PRN PRN Reason: NAUSEA OR VOMITING Senna/Docusate Sodium (Joanne-Colace) 1 tab PO BID [facility] Sennosides (Senokot) 17.2 mg PO Q12H PRN PRN Reason: Moderate Constipation Sodium Chloride (Ns Flush) 2 ml IV.FLUSH PRN PRN PRN Reason: FLUSH AFTER USING IV ACCESS Sodium Chloride (Ns Flush) 2 ml IV.FLUSH BID [facility] Thiamine HCl (Vitamin B1) 100 mg PO DAILY [facility] Allergies Allergy/AdvReac Type Severity Reaction Status Date / Time colchicine Allergy Severe GASTRIC Unverified 04/16/18 20:20 EROSION, EDEMA diclofenac Allergy Severe GASTRIC Unverified 04/16/18 20:20 EROSION tramadol Allergy Severe VERTIGO Unverified 04/16/18 20:20 Home Medications Medication Instructions Recorded Confirmed Type Unable to Obtain Home Meds 04/16/18 04/16/18 History Exam Vital signs: Vital Signs 04/16/18 20:11 04/16/18 21:02 Temperature 97.8 F Pulse Rate 90 113 H Respiratory Rate 22 Blood Pressure 152/76 H Pulse Oximetry 95 Intake & Output 04/16/18 04/16/18 04/17/18 06:59 18:59 06:59 Intake Total 50 / 50 Balance 50 / 50 Weight 130.635 kg Intake: IV 50 / 50 Ancef 2 GM Premix Inj 2 gm In 50 / 50 50 ml @ 100 mls/hr IV.SIG ONCE ONE Rx#:[id number] - Constitutional obese - Routine Neck Exam Present: full ROM - Routine Respiratory Exam Absent: accessory muscle use - Routine Cardiovascular Exam Present: RRR - Routine Extremities Exam Comments: LLE: ankle with open laceration medially with tibia exposed. Toes are warm with good capillary refill Diminished sensation to all toes Remainder of extremities unremarkable - Routine Neurological Exam Present: alert, oriented X3 Results - Labs Result Diagrams: 04/16/18 20:37 04/16/18 20:37 Labs: Laboratory Results - last 24 hr 04/16/18 04/16/18 04/16/18 20:37 20:37 20:37 WBC 19.6 H RBC 4.58 Hgb 14.9 POC Hgb (Calc) Cancelled Hct 44.3 POC Hct Cancelled MCV 96.7 MCH 32.6 MCHC 33.7 RDW 14.2 Plt Count 205 MPV 8.7 Neut % (Auto) 86.7 H Lymph % (Auto) 7.7 L Orange % (Auto) 5.0 Eos % (Auto) 0.3 Baso % (Auto) 0.3 Neut # (Auto) 17.0 H Lymph # (Auto) 1.5 Orange # (Auto) 1.0 H Eos # (Auto) 0.1 Baso # (Auto) 0.1 WBC Differential . Differential Comment Auto diff final PT 10.5 INR 1.0 APTT 25.4 POC Sodium Cancelled POC Potassium Cancelled POC Chloride Cancelled POC BUN Cancelled POC Creatinine Cancelled POC Glucose Cancelled Blood Type 04/16/18 20:37 WBC RBC Hgb POC Hgb (Calc) Hct POC Hct MCV MCH MCHC RDW Plt Count MPV Neut % (Auto) Lymph % (Auto) Orange % (Auto) Eos % (Auto) Baso % (Auto) Neut # (Auto) Lymph # (Auto) Orange # (Auto) Eos # (Auto) Baso # (Auto) WBC Differential Differential Comment PT INR APTT POC Sodium POC Potassium POC Chloride POC BUN POC Creatinine POC Glucose Blood Type A Positive - Diagnostic results Imaging: Impressions Chest X-Ray 04/16/18 20:12 CONCLUSION: No acute cardiopulmonary disease. Foot X-Ray 04/16/18 20:12 CONCLUSION: There is a fracture and posterior joint dislocation at the mortise joint. Tibia/Fibula X-Ray 04/16/18 20:12 CONCLUSION: Ankle fracture dislocation. Assessment and Plan - Assessment and Plan 72 year old male with an open bimalleolar ankle fracture dislocation Plan: To OR urgently for I&D, reduction and fixation of left ankle. Risks, benefits and alternatives discussed with patient. Risks include but not limited to infection, bleeding, damage to neurovascular structures, nonunion, malunion, painful hardware, potential need for further surgical procedures. Patient verbalized understanding and wishes to proceed with surgery. Ancef started in ED, will continue for 48 hours. Tetanus updated. Keep NPO.
[2018-04-16] MEDS ORDERED: Phenylephrine/NS 1000 MCG/10ML Syringe IV.PUSH ONE (22:18)
[2018-04-16] MEDS ORDERED: Succinylcholine Inj 100 MG/5 ML Syringe IV.PUSH ONE (22:18)
[2018-04-16] MEDS ORDERED: Lidocaine PF 1% Inj 5 ML Syringe OTHER ONE (22:18)
[2018-04-16] MEDS ORDERED: Esmolol Bolus Inj 100 MG/10 ML Vial IV.PUSH ONE (22:18)
[2018-04-17] MEDS ORDERED: Sugammadex Inj 200 MG/2 ML Vial IV.PUSH ONE (00:05)
--- NOTE | 2018-04-17 01:33 | P.BOP ---
- Preoperative Diagnosis (1) Ankle fracture - Postoperative Diagnosis (1) Ankle fracture Date of procedure: 04/16/18 Procedure: left ankle I&D, ORIF Implants: Synthes Anesthesia: GETA Surgeon: Geni Davis MD Estimated blood loss (mL): 25 Tourniquet time (min): 120 Pathology: none sent Condition: stable Disposition: PACU
[2018-04-17] MEDS ORDERED: *morphine SULFATE 4 MG/ML PERIprocedure ONLY ONE ×2 (01:45→02:42)
[2018-04-17] MEDS: Sod Chloride 0.9% Inj 1,000 ML IV.CONT SCH ×3 (02:26→17:31)
[2018-04-17] MEDS: ceFAZolin 2 GM Premix Inj 2 GM/50 ML PIGGYBACK IV.SIG SCH ×3 (02:45→18:09)
[2018-04-17] MEDS: Morphine Inj 4 MG/ML Vial IV.PUSH PRN ×5 (05:33→22:15)
[2018-04-17] MEDS: Thiamine Inj 100 MG in Sodium Chlor 0.9% Inj 100 ML IV.SIG SCH ×2 (05:35→09:59)
[2018-04-17] MEDS ORDERED: fentaNYL Citrate Inj 100 MCG/2 ML Ampul ONE (06:02)
[2018-04-17 06:27] LABS: Baso # (Auto) 0.1 th/mm3 (0.0-0.2); Baso % (Auto) 0.3 % (0.0-2.0); Eos % (Auto) 0.1 % (0.0-4.0); Hematocrit 39.7 % (39.0-51.0); Hemoglobin 13.6 gm/dL (13.0-17.0); Lymph # (Auto) 1.6 th/mm3 (1.0-4.8); Lymph % (Auto) 9.4 % (9.0-44.0); Mean Corpuscular HGB Conc 34.3 % (32.0-36.0); Mean Corpuscular Hemoglobin 32.7 pg (27.0-34.0); Mean Corpuscular Volume 95.5 fL (80.0-100.0); Mono # (Auto) 1.4 th/mm3 (0.0-0.9); Mono % (Auto) 8.5 % (0.0-8.0); Neut # (Auto) 13.8 th/mm3 (1.8-7.7); Neut % (Auto) 81.7 % (16.0-70.0); Platelet Count 198 th/mm3 (150-450); Red Blood Count 4.16 mil/mm3 (4.50-5.90); Red Cell Distribution Width 13.8 % (11.6-17.2); White Blood Count 16.9 th/mm3 (4.0-11.0)
[2018-04-17 06:54] LABS: Albumin 3.5 g/dL (3.4-5.0); Anion Gap 9 meq/L (5-15); Blood Urea Nitrogen 14 mg/dL (7-18); Calcium 8.2 mg/dL (8.5-10.1); Carbon Dioxide 22.1 meq/L (21.0-32.0); Chloride 107 meq/L (98-107); Glomerular Filtration Rate 56 mL/min (>89); Glucose,Random 110 mg/dL (74-106); Potassium 3.9 meq/L (3.5-5.1); Sodium 138 meq/L (136-145)
[2018-04-17 06:55] LABS: Alanine Aminotransferase 29 U/L (12-78); Aspartate Aminotransferase 21 U/L (15-37)
[2018-04-17 06:57] LABS: Alkaline Phosphatase 90 U/L (45-117)
--- NOTE | 2018-04-17 07:00 | XR ---
EXAM DATE: 04/17/2018 1:46 AM EST AGE/SEX: 72 years / Male INDICATIONS: ORIF of the left ankle. CLINICAL DATA: This is the patient's subsequent encounter. Patient reports that signs and symptoms h ave been present for 2 days and indicates a pain score of Nonresponsive. MEDICAL/SURGICAL HISTORY: Hypertension. Chronic obstructive pulmonary disease. Gastroesophage al reflux disease. . Resection of the stomach. COMPARISON: [facility] – [place], FOOT LIMITED LEFT 2V, 04/16/2018. . FINDINGS: Patient is status post internal fixation for fractures involving the distal fibula and medial malleol us. There is good position at the mortise joint. The hardware is grossly intact. The previously noted fracture dislocation has been satisfactorily reduced. CONCLUSION: Good position and alignment on this postoperative study. Electronically signed by: Patrice Johnson MD 04/17/2018 6:59 AM EST
[2018-04-17] MEDS: Senna/Docusate Sodium 8.6/50 MG Tablet PO SCH ×3 (09:59→21:08)
[2018-04-17] MEDS: Folic Acid 1 MG Tablet PO SCH (09:59)
[2018-04-17] MEDS: Multivitamin/Minerals Therapeutic Tablet PO SCH (09:59)
--- NOTE | 2018-04-17 12:48 | ECG ---
Date Performed: 04/16/2018 Time Performed: 21:07:49 PTAGE: 72 years EKG: SINUS TACHYCARDIA INCOMPLETE RIGHT BUNDLE BRANCH BLOCK ABNORMAL RHYTHM ECG Since the PREVIOUS TRACING , no significant change noted PREVIOUS TRACIN09/05/2009 10.24 DOCTOR: Jose Huertas Interpretating Date/Time 04/17/2018 12:47:36
--- NOTE | 2018-04-17 14:23 | P.PNOP ---
Subjective Interval history: Stable overnight, complains of appropriate posop left ankle pain. Physical Exam Vital signs: Vital Signs 04/16/18 20:11 04/16/18 21:02 04/16/18 21:27 Temperature 97.8 F Pulse Rate 90 113 H 108 H Respiratory Rate 22 18 Blood Pressure 152/76 H 134/60 Pulse Oximetry 95 93 L 04/17/18 01:30 04/17/18 01:45 04/17/18 01:48 Temperature 98.4 F Pulse Rate 99 H 101 H Respiratory Rate 19 17 17 Blood Pressure 139/65 143/71 H Pulse Oximetry 90 L 91 L 04/17/18 02:00 04/17/18 02:15 04/17/18 02:30 Temperature Pulse Rate 104 H 105 H 108 H Respiratory Rate 15 22 15 Blood Pressure 142/69 H 137/69 125/60 Pulse Oximetry 93 L 94 L 92 L 04/17/18 02:45 04/17/18 02:48 04/17/18 03:00 Temperature Pulse Rate 109 H 109 H Respiratory Rate 17 16 16 Blood Pressure 118/61 116/59 L Pulse Oximetry 94 L 94 L 04/17/18 03:08 04/17/18 04:00 04/17/18 08:00 Temperature 98.2 F 98.9 F 99.3 F Pulse Rate 109 H 102 H 103 H Respiratory Rate 16 16 18 Blood Pressure 129/60 119/63 137/63 Pulse Oximetry 90 L 95 93 L 04/17/18 12:00 Temperature 100 F H Pulse Rate 105 H Respiratory Rate 18 Blood Pressure 132/63 Pulse Oximetry 95 Intake & Output 04/16/18 04/17/18 04/17/18 18:59 06:59 18:59 Intake Total 1999 1050 / 1050 Output Total Balance 1969 / 1969 1050 / 1050 Weight 130.635 kg 130.63 kg Intake: IV 100 / 100 1050 / 1050 NS Inj 1,000 ML @ 100 mls/hr IV 1000 / 1000 .CONT .Q10H YVES Rx#:[id number] Ancef 2 GM Premix Inj 2 gm In 100 / 100 50 / 50 50 ml @ 100 mls/hr IV.SIG Q8H YVES Rx#:[id number] Anesthesia Amount 1900 / 1900 Output: Estimated Blood Loss Other: Weight On Admission 130.63 kg Narrative: left leg splint clean, dry, intact. Toes are warm and well perfused. Able to wiggle all toes. 2+DP pulse. Numbness to toes, which is unchanged from preop exam. Results - Labs CBC & Chem 7: 04/17/18 05:20 04/17/18 05:20 Laboratory Results - last 24 hr 04/16/18 04/16/18 04/16/18 20:37 20:37 20:37 WBC 19.6 H RBC 4.58 Hgb 14.9 POC Hgb (Calc) Cancelled Hct 44.3 POC Hct Cancelled MCV 96.7 MCH 32.6 MCHC 33.7 RDW 14.2 Plt Count 205 MPV 8.7 Neut % (Auto) 86.7 H Lymph % (Auto) 7.7 L [place] % (Auto) 5.0 Eos % (Auto) 0.3 Baso % (Auto) 0.3 Neut # (Auto) 17.0 H Lymph # (Auto) 1.5 [place] # (Auto) 1.0 H Eos # (Auto) 0.1 Baso # (Auto) 0.1 WBC Differential . Differential Comment Auto diff final PT 10.5 INR 1.0 APTT 25.4 POC Sodium Cancelled Sodium POC Potassium Cancelled Potassium POC Chloride Cancelled Chloride Carbon Dioxide Anion Gap POC BUN Cancelled BUN Creatinine POC Creatinine Cancelled Estimated GFR POC Glucose Cancelled Random Glucose Calcium Total Bilirubin AST ALT Alkaline Phosphatase B-Natriuretic Peptide Total Protein Albumin Blood Type Antibody Screen 04/16/18 04/16/18 04/16/18 20:37 20:37 20:37 WBC RBC Hgb POC Hgb (Calc) Hct POC Hct MCV MCH MCHC RDW Plt Count MPV Neut % (Auto) Lymph % (Auto) [place] % (Auto) Eos % (Auto) Baso % (Auto) Neut # (Auto) Lymph # (Auto) [place] # (Auto) Eos # (Auto) Baso # (Auto) WBC Differential Differential Comment PT INR APTT POC Sodium Sodium 140 POC Potassium Potassium 4.0 POC Chloride Chloride 107 Carbon Dioxide 20.8 L Anion Gap 12 POC BUN BUN 14 Creatinine 1.33 H POC Creatinine Estimated GFR 53 L POC Glucose Random Glucose 98 Calcium 8.3 L Total Bilirubin AST ALT Alkaline Phosphatase B-Natriuretic Peptide 10 Total Protein Albumin Blood Type A Positive Antibody Screen Negative 04/17/18 04/17/18 04/17/18 02:17 05:20 05:20 WBC 16.9 H RBC 4.16 L Hgb 13.6 POC Hgb (Calc) Hct 39.7 POC Hct MCV 95.5 MCH 32.7 MCHC 34.3 RDW 13.8 Plt Count 198 MPV 9.0 Neut % (Auto) 81.7 H Lymph % (Auto) 9.4 [place] % (Auto) 8.5 H Eos % (Auto) 0.1 Baso % (Auto) 0.3 Neut # (Auto) 13.8 H Lymph # (Auto) 1.6 [place] # (Auto) 1.4 H Eos # (Auto) 0.0 Baso # (Auto) 0.1 WBC Differential . Differential Comment Auto diff final PT INR APTT POC Sodium Sodium 138 POC Potassium Potassium 3.9 POC Chloride Chloride 107 Carbon Dioxide 22.1 Anion Gap 9 POC BUN BUN 14 Creatinine 1.26 POC Creatinine Estimated GFR 56 L POC Glucose 140 H Random Glucose 110 H Calcium 8.2 L Total Bilirubin 0.5 AST 21 ALT 29 Alkaline Phosphatase 90 B-Natriuretic Peptide Total Protein 7.0 Albumin 3.5 Blood Type Antibody Screen - Imaging Impressions Chest X-Ray 04/16/18 20:12 CONCLUSION: No acute cardiopulmonary disease. Foot X-Ray 04/16/18 20:12 CONCLUSION: There is a fracture and posterior joint dislocation at the mortise joint. Tibia/Fibula X-Ray 04/16/18 20:12 CONCLUSION: Ankle fracture dislocation. Ankle X-Ray 04/17/18 00:00 CONCLUSION: Good position and alignment on this postoperative study. Assessment and Plan - Ortho Post Op Day # 1 - Assessment and Plan 72 year old male POD 1 s/p I&D, ORIF left open ankle fracture-dislocation Plan: NWB LLE in splint PT to mobilize Continue Ancef for 48 hrs for open fracture pain control
--- NOTE | 2018-04-17 15:23 | P.PN ---
Subjective Interval history: Follow-up visit for left open ankle fracture and LACI. Patient is seen and examined sitting up on the side of the bed with physical therapy at bedside assisting with therapy. He denies any fevers, chills, nausea, vomiting, diarrhea. Patient endorses a cough since yesterday, nonproductive, denies any shortness of breath, low-grade temp noted overnight. Nurse also reported patient needed to be straight cath overnight as well as this morning due to retention. Patient reports he has had retention in the past when he receives general anesthesia. Complains of left ankle pain increased with movement. Physical Exam Vital signs: Vital Signs 04/16/18 20:11 04/16/18 21:02 04/16/18 21:27 Temperature 97.8 F Pulse Rate 90 113 H 108 H Respiratory Rate 22 18 Blood Pressure 152/76 H 134/60 Pulse Oximetry 95 93 L 04/17/18 01:30 04/17/18 01:45 04/17/18 01:48 Temperature 98.4 F Pulse Rate 99 H 101 H Respiratory Rate 19 17 17 Blood Pressure 139/65 143/71 H Pulse Oximetry 90 L 91 L 04/17/18 02:00 04/17/18 02:15 04/17/18 02:30 Temperature Pulse Rate 104 H 105 H 108 H Respiratory Rate 15 22 15 Blood Pressure 142/69 H 137/69 125/60 Pulse Oximetry 93 L 94 L 92 L 04/17/18 02:45 04/17/18 02:48 04/17/18 03:00 Temperature Pulse Rate 109 H 109 H Respiratory Rate 17 16 16 Blood Pressure 118/61 116/59 L Pulse Oximetry 94 L 94 L 04/17/18 03:08 04/17/18 04:00 04/17/18 08:00 Temperature 98.2 F 98.9 F 99.3 F Pulse Rate 109 H 102 H 103 H Respiratory Rate 16 16 18 Blood Pressure 129/60 119/63 137/63 Pulse Oximetry 90 L 95 93 L 04/17/18 12:00 Temperature 100 F H Pulse Rate 105 H Respiratory Rate 18 Blood Pressure 132/63 Pulse Oximetry 95 Intake & Output 04/16/18 04/17/18 04/17/18 18:59 06:59 18:59 Intake Total 1999 1050 / 1050 Output Total Balance 1969 / 1970 1050 / 1050 Weight 130.635 kg 130.63 kg Intake: IV 100 / 100 1050 / 1050 NS Inj 1,000 ML @ 100 mls/hr IV 1000 / 1000 .CONT .Q10H YVES Rx#:[id number] Ancef 2 GM Premix Inj 2 gm In 100 / 100 50 / 50 50 ml @ 100 mls/hr IV.SIG Q8H YVES Rx#:[id number] Anesthesia Amount 1900 / 1900 Output: Estimated Blood Loss 30 / 30 Other: Weight On Admission 130.63 kg Narrative: GENERAL: Elderly white male in no acute distress. SKIN: Focused skin assessment warm and dry. HEENT: Pupils equal and round. No scleral icterus or conjunctival pallor. CARDIOVASCULAR: Regular rate and rhythm. No obvious murmurs to auscultation. No chest tenderness to palpation. RESPIRATORY: No obvious rhonchi or wheezing. Clear to auscultation. Breath sounds equal bilaterally. GASTROINTESTINAL: Abdomen soft, non-tender, nondistended. BS normal. MUSCULOSKELETAL: Extremities without clubbing, cyanosis, or edema. Left ankle/ foot in splint, +toe movement, capillary refill <3 seconds/warm, numbness to toes. NEUROLOGICAL: Awake, alert and oriented x4. No focal neurologic deficits. Moving both upper and lower extremities spontaneously. PSYCHIATRIC: Appropriate mood and affect. Insight and judgment normal. Results - Labs CBC & Chem 7: 04/17/18 05:20 04/17/18 05:20 Laboratory Results - last 24 hr 04/16/18 04/16/18 04/16/18 20:37 20:37 20:37 WBC 19.6 H RBC 4.58 Hgb 14.9 POC Hgb (Calc) Cancelled Hct 44.3 POC Hct Cancelled MCV 96.7 MCH 32.6 MCHC 33.7 RDW 14.2 Plt Count 205 MPV 8.7 Neut % (Auto) 86.7 H Lymph % (Auto) 7.[address] [place] % (Auto) 5.0 Eos % (Auto) 0.3 Baso % (Auto) 0.3 Neut # (Auto) 17.0 H Lymph # (Auto) 1.5 [place] # (Auto) 1.0 H Eos # (Auto) 0.1 Baso # (Auto) 0.1 WBC Differential . Differential Comment Auto diff final PT 10.5 INR 1.0 APTT 25.4 POC Sodium Cancelled Sodium POC Potassium Cancelled Potassium POC Chloride Cancelled Chloride Carbon Dioxide Anion Gap POC BUN Cancelled BUN Creatinine POC Creatinine Cancelled Estimated GFR POC Glucose Cancelled Random Glucose Calcium Total Bilirubin AST ALT Alkaline Phosphatase B-Natriuretic Peptide Total Protein Albumin Blood Type Antibody Screen 04/16/18 04/16/18 04/16/18 20:37 20:37 20:37 WBC RBC Hgb POC Hgb (Calc) Hct POC Hct MCV MCH MCHC RDW Plt Count MPV Neut % (Auto) Lymph % (Auto) [place] % (Auto) Eos % (Auto) Baso % (Auto) Neut # (Auto) Lymph # (Auto) [place] # (Auto) Eos # (Auto) Baso # (Auto) WBC Differential Differential Comment PT INR APTT POC Sodium Sodium 140 POC Potassium Potassium 4.0 POC Chloride Chloride 107 Carbon Dioxide 20.8 L Anion Gap 12 POC BUN BUN 14 Creatinine 1.33 H POC Creatinine Estimated GFR 53 L POC Glucose Random Glucose 98 Calcium 8.3 L Total Bilirubin AST ALT Alkaline Phosphatase B-Natriuretic Peptide 10 Total Protein Albumin Blood Type A Positive Antibody Screen Negative 04/17/18 04/17/18 04/17/18 02:17 05:20 05:20 WBC 16.9 H RBC 4.16 L Hgb 13.6 POC Hgb (Calc) Hct 39.7 POC Hct MCV 95.5 MCH 32.7 MCHC 34.3 RDW 13.8 Plt Count 198 MPV 9.0 Neut % (Auto) 81.7 H Lymph % (Auto) 9.4 [place] % (Auto) 8.5 H Eos % (Auto) 0.1 Baso % (Auto) 0.3 Neut # (Auto) 13.8 H Lymph # (Auto) 1.6 [place] # (Auto) 1.4 H Eos # (Auto) 0.0 Baso # (Auto) 0.1 WBC Differential . Differential Comment Auto diff final PT INR APTT POC Sodium Sodium 138 POC Potassium Potassium 3.9 POC Chloride Chloride 107 Carbon Dioxide 22.1 Anion Gap 9 POC BUN BUN 14 Creatinine 1.26 POC Creatinine Estimated GFR 56 L POC Glucose 140 H Random Glucose 110 H Calcium 8.2 L Total Bilirubin 0.5 AST 21 ALT 29 Alkaline Phosphatase 90 B-Natriuretic Peptide Total Protein 7.0 Albumin 3.5 Blood Type Antibody Screen - Imaging Impressions Chest X-Ray 04/16/18 20:12 CONCLUSION: No acute cardiopulmonary disease. Foot X-Ray 04/16/18 20:12 CONCLUSION: There is a fracture and posterior joint dislocation at the mortise joint. Tibia/Fibula X-Ray 04/16/18 20:12 CONCLUSION: Ankle fracture dislocation. Ankle X-Ray 04/17/18 00:00 CONCLUSION: Good position and alignment on this postoperative study. Assessment and Plan - Assessment (1) Fall Code(s): W19.XXXA - Unspecified fall, initial encounter Status: Acute (2) Ankle fracture Code(s): S82.899A - Other fracture of unspecified lower leg, initial encounter for closed fracture Status: Acute (3) Alcohol abuse Code(s): F10.10 - Alcohol abuse, uncomplicated Status: Acute (4) LACI (acute kidney injury) Code(s): N17.9 - Acute kidney failure, unspecified Status: Acute (5) Leukocytosis Code(s): D72.829 - Elevated white blood cell count, unspecified Status: Acute - Plan 72-year-old male with past medical history significant for hypertension, COPD and alcohol abuse who presented to the emergency department on 04/16 after slip and fall at home resulting in left ankle fracture. Mechanical fall, slip and fall Left ankle fracture and posterior joint dislocation at mortise joint - s/p left ankle I&D, ORIF by 04/16 - Pain control with p.o. [place], IV morphine for breakthrough pain - PT following, recommending PT at rehab with wheeled walker Acute kidney injury Creatinine on admission 1.33 -Creatinine this morning 1.26, slightly improved. Continue encouraging oral fluids. - Electrolytes stable for the moment. Leukocytosis, acute 19.6--> 16.9 -Possibly stress related -Cough reported, T-max 100, chest x-ray 04/16 negative -Check UA due to new onset of retention -Only on IV Ancef per ortho - recheck CBC if ongoing temps, repeat chest x-ray if needed. Currently on room air with good oxygen saturation. Hypertension, chronic -BP relatively controlled off valsartan, hold for the moment and continue monitoring blood pressures. Alcohol abuse - CIWA, seizure precautions, MTV/ Thiamine/ Folate. Urinary retention -Patient reports a history of retention requiring several weeks of Thomas catheterization following exposure to anesthesia. -Maintain Thomas catheter, start bethanechol DVT prophylaxis- Per ortho recommendations, SCD to RLE Discussed Condition With: Patient and RN
[2018-04-17] MEDS ORDERED: ALBUTEROL SULFATE 90 MCG INHALATION SCH (21:00)
[2018-04-17] MEDS: Budesonide-Formoterol 160/4.5 MCG 6 GM Inhaler INH SCH (22:12)
[2018-04-18] MEDS: ceFAZolin 2 GM Premix Inj 2 GM/50 ML PIGGYBACK IV.SIG SCH ×3 (02:18→17:09)
[2018-04-18] MEDS: Sod Chloride 0.9% Inj 1,000 ML IV.CONT SCH ×3 (02:19→13:31)
[2018-04-18] MEDS: Folic Acid 1 MG Tablet PO SCH (08:05)
[2018-04-18] MEDS: Allopurinol 300 MG Tablet PO SCH (08:05)
[2018-04-18] MEDS: Multivitamin/Minerals Therapeutic Tablet PO SCH (08:06)
[2018-04-18] MEDS: Senna/Docusate Sodium 8.6/50 MG Tablet PO SCH ×2 (08:07→20:11)
[2018-04-18] MEDS: Budesonide-Formoterol 160/4.5 MCG 6 GM Inhaler INH SCH ×2 (08:07→20:14)
[2018-04-18] MEDS: Thiamine Inj 100 MG in Sodium Chlor 0.9% Inj 100 ML IV.SIG SCH (09:30)
--- NOTE | 2018-04-18 10:37 | P.PN ---
Subjective Interval history: Follow-up visit for left open ankle fracture and LACI. Patient is seen and examined sitting up in bed with son and nurse at bedside. He denies any chills , nausea, vomiting, diarrhea, cough, shortness of breath or chest pain. Reports pain relief with medications. Discussed with patient discharged to rehab center, both patient and son agree. Physical Exam Vital signs: Vital Signs 04/17/18 12:00 04/17/18 16:00 04/17/18 20:00 Temperature 100 F H 98.3 F 99.0 F Pulse Rate 105 H 97 H 88 Respiratory Rate 18 19 17 Blood Pressure 132/63 145/70 H 118/60 Pulse Oximetry 95 96 95 04/18/18 00:00 04/18/18 08:00 Temperature 98.7 F 97.7 F Pulse Rate 88 92 H Respiratory Rate 18 18 Blood Pressure 122/63 138/62 Pulse Oximetry 96 95 Intake & Output 04/17/18 04/18/18 04/18/18 18:59 06:59 18:59 Intake Total 2099 1050 / 1050 Output Total 6975 / 6975 Balance 2099 / 2099 -5925 / -5925 Weight 130.63 kg 128.4 kg Intake: IV 2099 1050 / 1050 NS Inj 1,000 ML @ 100 mls/hr IV 1999 / 1999 1000 / 1000 .CONT .Q10H YVES Rx#:[id number] Ancef 2 GM Premix Inj 2 gm In 100 / 100 50 / 50 50 ml @ 100 mls/hr IV.SIG Q8H YVES Rx#:[id number] Output: Urine Amount (Catheter) 6975 / 6975 Indwelling Urethral Catheter 6975 / 6975 Other: Date of Last Bowel Movement 03/19/18 03/18/18 03/18/18 Weight On Admission 130.63 kg Narrative: GENERAL: Elderly white male in no acute distress. SKIN: Focused skin assessment warm and dry. HEENT: Pupils equal and round. No scleral icterus or conjunctival pallor. CARDIOVASCULAR: Regular rate and rhythm. No obvious murmurs to auscultation. No chest tenderness to palpation. RESPIRATORY: No obvious rhonchi or wheezing. Clear to auscultation. Breath sounds equal bilaterally. GASTROINTESTINAL: Abdomen soft, non-tender, nondistended. BS normal. MUSCULOSKELETAL: Extremities without clubbing, cyanosis, or edema. Left ankle/ foot in splint, +toe movement, capillary refill <3 seconds/warm, numbness to toes. NEUROLOGICAL: Awake, alert and oriented x4. No focal neurologic deficits. Moving both upper and lower extremities spontaneously. PSYCHIATRIC: Appropriate mood and affect. Insight and judgment normal. - Urinary Catheter Management Indwelling Urethral Catheter Cath placed during this visit: yes Reason for continuing: Acute urinary retention Insertion date: 04/17/18 Insertion time: 11:00 Results - Labs CBC & Chem 7: 04/17/18 05:20 04/17/18 05:20 Laboratory Results - last 24 hr 04/18/18 07:54 POC Glucose 158 H Assessment and Plan - Assessment (1) Fall Code(s): W19.XXXA - Unspecified fall, initial encounter Status: Acute (2) Ankle fracture Code(s): S82.899A - Other fracture of unspecified lower leg, initial encounter for closed fracture Status: Acute (3) Alcohol abuse Code(s): F10.10 - Alcohol abuse, uncomplicated Status: Acute (4) LACI (acute kidney injury) Code(s): N17.9 - Acute kidney failure, unspecified Status: Acute (5) Leukocytosis Code(s): D72.829 - Elevated white blood cell count, unspecified Status: Acute - Plan 72-year-old male with past medical history significant for hypertension, COPD and alcohol abuse who presented to the emergency department on 04/16 after slip and fall at home resulting in left ankle fracture. Mechanical fall, slip and fall Left ankle fracture and posterior joint dislocation at [facility] joint - s/p left ankle I&D, ORIF by 04/16 - Pain control with p.o. [place], DC IV morphine, has not used any as of today. - PT following, recommending PT at rehab with wheeled walker Acute kidney injury Creatinine on admission 1.33 -Creatinine 1.26, slightly improved. Continue encouraging oral fluids. - Electrolytes stable for the moment, recheck BMP in the morning. Leukocytosis, acute 19.6--> 16.9 -Possibly stress related -Low-grade temp, otherwise asymptomatic, chest x-ray 04/16 negative -New onset of retention, UA yet to be collected -On IV Ancef per ortho - recheck CBC in the a.m., on room air with no further reports of coughing. Hypertension, chronic -BP relatively controlled off valsartan, hold for the moment and continue monitoring blood pressures. Alcohol abuse - CIWA, seizure precautions, MTV/ Thiamine/ Folate. Urinary retention -Patient reports a history of retention requiring several weeks of Thomas catheterization following exposure to anesthesia. -Maintain Thomas catheter, continue bethanechol, if going to rehab can DC with Thomas and do bladder training at rehab. DVT prophylaxis- Per ortho recommendations, SCD to RLE Discussed Condition With: Patient, son and police manager Planning: Case management has reached out to kita Keller. Needs to complete IV Ancef and clearance by Ortho.
[2018-04-18 20:13] LABS: Bilirubin,Urine Negative (Negative); Clarity,Urine Clear (Clear); Color,Urine Yellow (Yellw/Straw); Glucose,Urine (UA) Negative (Negative); Leukocyte Esterase,Urine Trace (Negative); Nitrite,Urine Negative (Negative); Specific Gravity,Urine 1.012 (1.002-1.035); Squamous Epithelial Cell,Urine <1 /hpf (0-5)
--- NOTE | 2018-04-18 21:54 | P.PNOP ---
Subjective Interval history: Stable overnight, complains of pain to left ankle, improved today. Physical Exam Vital signs: Vital Signs 04/18/18 00:00 04/18/18 08:00 04/18/18 09:00 Temperature 98.7 F 97.7 F Pulse Rate 88 92 H 97 H Respiratory Rate 18 18 Blood Pressure 122/63 138/62 Pulse Oximetry 96 95 04/18/18 11:26 04/18/18 12:00 04/18/18 13:30 Temperature 97.9 F Pulse Rate 85 81 Respiratory Rate 18 7 L Blood Pressure 103/58 L Pulse Oximetry 95 04/18/18 16:00 04/18/18 19:20 04/18/18 21:18 Temperature 98.7 F 98.6 F Pulse Rate 81 91 H Respiratory Rate 18 18 18 Blood Pressure 121/56 L 119/57 L Pulse Oximetry 95 96 Intake & Output 04/18/18 04/18/18 04/19/18 06:59 18:59 06:59 Intake Total 1050 / 1050 1151 / 1151 Output Total 6975 / 6975 2300 / 2300 Balance -5925 / -5925 -1149 / -1149 Weight 128.4 kg Intake: IV 1050 / 1050 1151 / 1151 NS Inj 1,000 ML @ 100 mls/hr IV 1000 / 1000 1000 / 1000 .CONT .Q10H YVES Rx#:[id number] Thiamine Inj 100 MG In NS Inj 101 / 101 100 ML @ 100 mls/hr IV.SIG DAILY YVES Rx#:[id number] Ancef 2 GM Premix Inj 2 gm In 50 / 50 50 / 50 50 ml @ 100 mls/hr IV.SIG Q8H YVES Rx#:[id number] Output: Urine 2300 / 2300 Urine Amount (Catheter) 6975 / 6975 Indwelling Urethral Catheter 6975 / 6975 Other: Date of Last Bowel Movement 03/18/18 03/18/18 Narrative: left leg splint in place, clean/dry/intact. 2+DP. Wiggles all toes. Numbness to toes. - Urinary Catheter Management Indwelling Urethral Catheter Cath placed during this visit: yes Reason for continuing: Acute urinary retention Insertion date: 04/17/18 Insertion time: 11:00 Results - Labs CBC & Chem 7: 04/17/18 05:20 04/17/18 05:20 Laboratory Results - last 24 hr 04/18/18 04/18/18 04/18/18 07:54 16:12 19:55 POC Glucose 158 H 145 H Urine Color Yellow Urine Clarity Clear Urine pH 5.0 Ur Specific [place] 1.012 Urine Protein Negative Urine Glucose (UA) Negative Urine Ketones Negative Urine Occult Blood Negative Urine Nitrate Negative Urine Bilirubin Negative Urine Urobilinogen 2.0 H Ur Leukocyte Esterase Trace H Urine RBC Less than 1 Urine WBC 4 Ur Squamous Epith Cells <1 Micro UA Comment Cath-culture not ind Ur Microscopic Review Not Reportable Urine Culture Comments Cath-cult not ind 04/18/18 20:14 POC Glucose 150 H Urine Color Urine Clarity Urine pH Ur Specific [place] Urine Protein Urine Glucose (UA) Urine Ketones Urine Occult Blood Urine Nitrate Urine Bilirubin Urine Urobilinogen Ur Leukocyte Esterase Urine RBC Urine WBC Ur Squamous Epith Cells Micro UA Comment Ur Microscopic Review Urine Culture Comments Assessment and Plan - Assessment and Plan 72 year old male POD 2 s/p I&D, ORIF left open ankle fracture-dislocation Plan: NWB LLE in splint PT to mobilize Continue Ancef for 48 hrs for open fracture, completed today pain control Clear for discharge from orthopedic standpoint, follow up in 1-2 weeks
[2018-04-19] MEDS: Sod Chloride 0.9% Inj 1,000 ML IV.CONT SCH ×4 (00:55→19:50)
[2018-04-19 06:30] LABS: Baso % (Auto) 0.5 % (0.0-2.0); Eos # (Auto) 0.4 th/mm3 (0.0-0.4); Eos % (Auto) 4.3 % (0.0-4.0); Hematocrit 34.4 % (39.0-51.0); Lymph # (Auto) 1.7 th/mm3 (1.0-4.8); Lymph % (Auto) 17.3 % (9.0-44.0); Mean Corpuscular HGB Conc 34.9 % (32.0-36.0); Mean Corpuscular Hemoglobin 33.5 pg (27.0-34.0); Mean Corpuscular Volume 95.9 fL (80.0-100.0); Mean Platelet Volume 8.6 fL (7.0-11.0); Mono % (Auto) 10.1 % (0.0-8.0); Neut # (Auto) 6.6 th/mm3 (1.8-7.7); Neut % (Auto) 67.8 % (16.0-70.0); Platelet Count 144 th/mm3 (150-450); Red Blood Count 3.59 mil/mm3 (4.50-5.90); Red Cell Distribution Width 13.8 % (11.6-17.2); White Blood Count 9.7 th/mm3 (4.0-11.0)
[2018-04-19 06:48] LABS: Calcium 7.9 mg/dL (8.5-10.1); Carbon Dioxide 29.8 meq/L (21.0-32.0); Potassium 3.6 meq/L (3.5-5.1)
[2018-04-19] MEDS: Folic Acid 1 MG Tablet PO SCH (09:33)
[2018-04-19] MEDS: Allopurinol 300 MG Tablet PO SCH (09:33)
[2018-04-19] MEDS: Multivitamin/Minerals Therapeutic Tablet PO SCH (09:33)
[2018-04-19] MEDS: Budesonide-Formoterol 160/4.5 MCG 6 GM Inhaler INH SCH ×2 (09:35→20:48)
[2018-04-19] MEDS: Thiamine Inj 100 MG in Sodium Chlor 0.9% Inj 100 ML IV.SIG SCH (09:41)
[2018-04-19] MEDS: Senna/Docusate Sodium 8.6/50 MG Tablet PO SCH ×2 (09:48→20:48)
--- NOTE | 2018-04-19 16:06 | P.PNIM ---
Subjective Interval history: Follow up left open ankle fracture and LACI Patient states he has not been able to rest overnight due to frequent interruptions. Left ankle pain controlled at present time. Patient denies cough , fevers or chills. He is tolerating diet. Physical Exam Vital signs: Last Vital Signs Temp 98.4 F 04/19/18 12:00 Pulse 85 04/19/18 12:00 Resp 16 04/19/18 12:00 BP 105/56 L 04/19/18 12:00 Pulse Ox 93 L 04/19/18 12:00 Intake & Output 04/17/18 04/18/18 04/19/18 04/20/18 06:59 06:59 06:59 06:59 Intake Total 3000 / 3000 3150 / 3150 2662 / 2662 Output Total 6975 / 6975 4200 / 4200 Balance 2970 / 2970 -3825 / -3825 -1538 / -1538 Weight 130.635 kg 128.4 kg 137.9 kg Urinary Catheter Management Indwelling Urethral Catheter: Cath placed during this visit: yes Urethral indwelling: Yes Reason for continuing: Acute urinary retention Insertion date: 04/17/18 Insertion time: 11:00 Results Labs CBC & Chem 7: 04/19/18 05:12 04/19/18 05:12 Assessment and Plan Plan 72-year-old male with past medical history significant for hypertension, COPD and alcohol abuse who presented to the emergency department on 04/16 after slip and fall at home resulting in left ankle fracture. Mechanical fall, slip and fall - evaluated 04/19/18 Left ankle fracture and posterior joint dislocation at [facility] - s/p left ankle I&D, ORIF by 04/16 - Pain control with p.o. Srinath, MUKESH IV morphine, has not used any as of today. - PT following, recommending PT at rehab with wheeled walker Acute kidney injury - evaluated 04/19/18, resolved Creatinine on admission 1.33 -Creatinine 0.95 and improved. Continue encouraging oral fluids. - Electrolytes stable for the moment, monitor closely Leukocytosis, acute - evaluated 04/19/18, resolved 19.6--> 16.9 --> 9.7 -Possibly stress related -Low-grade temp, otherwise asymptomatic, chest x-ray 11/30 negative -New onset of retention, UA yet to be collected -On IV Ancef per ortho -recheck CBC in the a.m., on room air with no further reports of coughing. Hypertension, chronic - evaluated 04/19/18, normotensive -BP relatively controlled off valsartan, hold for the moment and continue monitoring blood pressures. Alcohol abuse - evaluated 04/19/18 - CIWA, seizure precautions, MTV/ Thiamine/ Folate. Urinary retention - evaluated 04/19/18 -Patient reports a history of retention requiring several weeks of Thomas catheterization following exposure to anesthesia. -Maintain Thomas catheter, continue bethanechol, if going to rehab can DC with Thomas and do bladder training at rehab. DVT prophylaxis- Per ortho recommendations, SCD to RLE Discharge Planning: CM arranging for short term rehab, possible d/c tomorrow Progress Note: Quality VTE Deep Vein Thrombosis/Pulmonary Embolism Present on Admission: No
--- NOTE | 2018-04-19 23:07 | P.PNOP ---
Subjective Interval history: No overnight events. Reports some improvement in left ankle pain. Physical Exam Vital signs: Vital Signs 04/18/18 23:47 04/19/18 03:36 04/19/18 08:00 Temperature 98.7 F 98.0 F 98.8 F Pulse Rate 85 90 85 Respiratory Rate 18 18 18 Blood Pressure 117/59 L 111/59 L 112/57 L Pulse Oximetry 95 94 L 92 L 04/19/18 12:00 04/19/18 16:00 04/19/18 20:41 Temperature 98.4 F 98.2 F 98.3 F Pulse Rate 85 79 82 Respiratory Rate 16 18 16 Blood Pressure 105/56 L 116/65 131/61 Pulse Oximetry 93 L 94 L 92 L Intake & Output 04/19/18 04/19/18 04/20/18 06:59 18:59 06:59 Intake Total 1461 / 1461 2341 / 2341 Output Total 1900 / 1900 1050 / 1050 Balance -439 / -439 1291 / 1291 Weight 137.9 kg Intake: IV 1101 / 1101 1101 / 1101 NS Inj 1,000 ML @ 100 mls/hr IV 1000 / 1000 1000 / 1000 .CONT .Q10H YVES Rx#:[id number] Thiamine Inj 100 MG In NS Inj 101 / 101 100 ML @ 100 mls/hr IV.SIG DAILY YVES Rx#:[id number] Oral 360 / 360 1240 / 1240 Output: Urine 1900 / 1900 1050 / 1050 Other: Date of Last Bowel Movement 04/17/18 04/17/18 # Bowel Movements 0 Narrative: LLE splint c/d/i, toes warm with good capillary refill, numbness present to toes - Urinary Catheter Management Indwelling Urethral Catheter Cath placed during this visit: yes Urethral indwelling: Yes Reason for continuing: Acute urinary retention Insertion date: 04/17/18 Insertion time: 11:00 Results - Labs CBC & Chem 7: 04/19/18 05:12 04/19/18 05:12 Laboratory Results - last 24 hr 04/19/18 04/19/18 05:12 05:12 WBC 9.7 RBC 3.59 L Hgb 12.0 L Hct 34.4 L MCV 95.9 MCH 33.5 MCHC 34.9 RDW 13.8 Plt Count 144 L MPV 8.6 Neut % (Auto) 67.8 Lymph % (Auto) 17.3 [place] % (Auto) 10.1 H Eos % (Auto) 4.3 H Baso % (Auto) 0.5 Neut # (Auto) 6.6 Lymph # (Auto) 1.7 [place] # (Auto) 1.0 H Eos # (Auto) 0.4 Baso # (Auto) 0.0 WBC Differential . Differential Comment Auto diff final Sodium 141 Potassium 3.6 Chloride 106 Carbon Dioxide 29.8 Anion Gap 5 BUN 12 Creatinine 0.95 Estimated GFR 78 L Random Glucose 99 Calcium 7.9 L Assessment and Plan - Assessment and Plan 72 year old male POD 3 s/p I&D, ORIF left open ankle fracture-dislocation Plan: NWB LLE in splint PT to mobilize pain control Clear for discharge from orthopedic standpoint, follow up in 1-2 weeks
[2018-04-20] MEDS: Sod Chloride 0.9% Inj 1,000 ML IV.CONT SCH (04:58)
[2018-04-20] MEDS: Multivitamin/Minerals Therapeutic Tablet PO SCH (08:32)
[2018-04-20] MEDS: Folic Acid 1 MG Tablet PO SCH (08:32)
[2018-04-20] MEDS: Senna/Docusate Sodium 8.6/50 MG Tablet PO SCH (08:32)
[2018-04-20] MEDS: Allopurinol 300 MG Tablet PO SCH (08:32)
[2018-04-20] MEDS: Budesonide-Formoterol 160/4.5 MCG 6 GM Inhaler INH SCH (08:33)
--- NOTE | 2018-04-20 11:05 | P.DS ---
DS: Providers Date of admission: 04/16/18 21:45 Primary care physician: [facility] Consults: 04/16/18 21:27 Consult to Orthopedic Surgery Routine Consulting Provider: Geni Davis Reason for Consultation: Left Ankle Fx, no need to re-call Notified:: Service Spoke with:: REESE Date Notified:: 04/16/18 Time Notified:: 21:55 Ordering Provider: DUONG 04/17/18 08:12 HUB Only Consult Order Routine Consulting Provider: Ovi Dior 04/18/18 10:45 HUB Only Consult Order Routine Consulting Provider: Oleg Caldwell Brief History from admission: This is a 72-year-old male with PMH of HTN, COPD and Alcohol Abuse who was brought to the ER by EMS after fall with open left ankle fracture. Pt denies LOC or head trauma, states he simply slipped and fell. On arrival, BP 152/76, HR 90, O2 sat 95% on RA, Afebrile. WBC 19.6. INR 1.0. Creatinine 1.33, previously 1.10 on 10/12/2017. CXR with no acute findings. Foot X-ray fracture and posterior joint dislocation at the mortise joint. Tib-fib X-ray ankle fracture dislocation. Ortho consulted, plan is for surgical intervention tonight. Admits to drinking approx 2-3 drinks every hour that he's awake. DS: Diagnosis Discharge Diagnosis (1) Ankle fracture: Status: Acute Diagnosis: Principal (2) LACI (acute kidney injury): Status: Acute Diagnosis: Principal (3) Leukocytosis: Status: Acute Diagnosis: Principal (4) Alcohol abuse: Status: Acute Diagnosis: Secondary (5) Urinary retention: Status: Acute Diagnosis: Secondary (6) Fall: Status: Acute Diagnosis: Principal (7) Hypertension: Status: Acute Diagnosis: Secondary DS: Summary 72-year-old male with past medical history significant for hypertension, COPD and alcohol abuse who presented to the emergency department on 04/16 after slip and fall at home resulting in left ankle fracture. Mechanical fall, slip and fall Left ankle fracture and posterior joint dislocation at mortise joint - s/p left ankle I&D, ORIF by 04/16 - Pain control with p.o. El[place] - PT recommended PT at rehab with wheeled walker -NWB LLE in splint -Clear for discharge from orthopedic standpoint, follow up in 1-2 weeks Acute kidney injury - resolved Creatinine on admission 1.33 -Creatinine 0.95 and improved Leukocytosis, acute - resolved 19.6--> 16.9 --> 9.7 Hypertension, chronic - normotensive -BP relatively controlled off valsartan Alcohol abuse -encouraged cessation Urinary retention -Patient reports a history of retention requiring several weeks of Thomas catheterization following exposure to anesthesia. -Maintain Thomas catheter, continue bethanechol, if going to rehab can DC with Thomas and do bladder training at rehab. [employer] Prescription Drug Monitoring Database has been queried and verified prior to prescribing the controlled substance. Time Spent with Patient Total time spent providing and/or coordinating discharge services: Greater than 30 minutes Status at Discharge Functional status at discharge: uses cane/walker Overall status at discharge: patient is progressing back to baseline Quality: VTE Deep Vein Thrombosis/Pulmonary Embolism Present on Admission: No Exam Narrative Exam Narrative: GENERAL: no acute distress, well developed, well nourished SKIN: Warm and dry. HEAD: Atraumatic. Normocephalic. EYES: Pupils equal and round. No scleral icterus. No injection or drainage. ENT: No nasal bleeding or discharge. Mucous membranes pink and moist. NECK: Trachea midline. No JVD. CARDIOVASCULAR: Regular rate and rhythm. RESPIRATORY: No accessory muscle use. Clear to auscultation. Breath sounds equal bilaterally. GASTROINTESTINAL: Abdomen soft, non-tender, nondistended. MUSCULOSKELETAL: No obvious deformities. Left ankle with splint, toes warm, good capillary refill NEUROLOGICAL: Awake and alert. No obvious cranial nerve deficits. Motor grossly within normal limits. Five out of 5 muscle strength in the arms and legs. Normal speech. PSYCHIATRIC: Appropriate mood and affect; insight and judgment normal. Results Impressions ITS Impressions Chest X-Ray 04/16/18 20:12 CONCLUSION: No acute cardiopulmonary disease. Foot X-Ray 04/16/18 20:12 CONCLUSION: There is a fracture and posterior joint dislocation at the mortise joint. Tibia/Fibula X-Ray 04/16/18 20:12 CONCLUSION: Ankle fracture dislocation. Ankle X-Ray 04/17/18 00:00 CONCLUSION: Good position and alignment on this postoperative study. Discharge Plan Discharge Disposition Patient Disposition: Discharge to SNF Discharge Condition Condition: Stable Discharge Order Discharge Orders: Discharge Order (Routine); Ordered 04/20/18 Ordered By: Maribeth Greene Discharge Details Anticipated Discharge Date: 04/20/18 Physicians Team ED Provider: Tobias Castellano ED Midlevel Provider: Mahad Santiago Primary Care Provider: [facility] Attending Provider: Oneil Clark Other Providers: Geni Davis ; Ovi,Carlos Aa ; [employer] Rxs /Orders / Referrals /Forms Prescriptions: New bethanechol chloride [Urecholine] 10 mg Tablet 10 mg PO TID Qty: 90 RF: 0 sennosides-docusate sodium [Senna Plus] 8.6-50 mg Tablet 1 tab PO BID Qty: 60 RF: 0 thiamine HCl (vitamin B1) 100 mg Tablet 100 mg PO DAILY Qty: 30 RF: 0 hydrocodone-acetaminophen 10-325 mg Tablet 1 tab PO Q4H PRN (Reason: Pain 6-10) Qty: 12 RF: 0 folic acid 1 mg Tablet 1 mg PO DAILY Qty: 30 RF: 0 scpsbpey-zfhm-AX-calcium-mins [Thera M Plus (ferrous fumarat)] 9 mg iron-400 mcg Tablet 1 tab PO DAILY Qty: 30 RF: 0 Continue simvastatin 40 mg Tablet 40 mg PO QPM RF: 0 allopurinol 300 mg Tablet 300 mg PO DAILY RF: 0 fluticasone [Flonase Allergy Relief] 50 mcg/actuation [place],Suspension 100 mcg Intranasal BID RF: 0 valsartan 160 mg Tablet 160 mg PO DAILY RF: 0 albuterol sulfate [Ventolin HFA] 90 mcg/actuation Hfa Aerosol Inhaler 90 mcg Inhalation BID RF: 0 budesonide-formoterol [Symbicort] 160-4.5 mcg/actuation Hfa Aerosol Inhaler 2 puff INHALATION BID RF: 0 Ambulatory Orders / Order Sets / DME: Walker With Front Wheels (1 each) (Routine) Location: Determined by Patient Ordered By: Vernon Crews Referrals: [facility] [Primary Care Provider] - See Instructions ( Follow up with primary care provider in 2-3 days.) Geni Davis MD [Physician] - See Instructions (Please follow up in office in 1-2 weeks. ) Discharge Instructions Patient Printed Instructions: Hydrocodone/Acetaminophen (By mouth), ORIF of an Ankle Fracture (DC) Additional Instructions: Rx for [place] 10/325mg (12) given at time of discharge. Take medications as prescribed. Your Health Problems: Goals to Promote Your Health: * To prevent worsening of your condition * To maintain your health at the optimal level Directions to Meet Your Goals: * Take your medications as prescribed * Follow your dietary instruction * Follow activity as directed * Keep your appointments as scheduled * Take your immunizations and boosters as scheduled * If your symptoms worsen call your PCP * If no PCP go to Urgent Care or Emergency Room Smoking is dangerous to your health. Avoid second hand smoke. You may reach the 24-hour crisis hotline for domestic abuse at . Status ED Status: Left Department Discharge Information Discharge Date/Time: 04/20/18 14:55 Discharge Location: [facility]
--- NOTE | 2018-04-26 14:34 | P.OP ---
- Preoperative Diagnosis (1) Ankle fracture - Postoperative Diagnosis (1) Ankle fracture Date of procedure: 04/17/18 Procedure: left ankle irrigation and debridement, open reduction internal fixation Implants: Synthes locking distal fibula plate and screws, cannulated screws x2 Anesthesia: GETA Surgeon: Geni Davis MD Estimated blood loss (mL): 25 Tourniquet time (min): 120 Pathology: none sent Operation and Findings: Indications: This is a 72 year old male who slipped in his house and sustained a left open ankle fracture-dislocation. Decision was made to proceed with operative treatment on an urgent basis. I discussed risks, benefits, and alternatives with the patient. Risks include but are not limited to infection, bleeding, damage to neurovascular structures, malunion, nonunion, continued pain and stiffness, and potential need for further surgical procedures. Patient verbalized understanding and agrees to proceed with surgery. Description of operation: The patient was identified preoperatively and the correct site marked. He was then taken to the operating room and positioned supine on the OR table. A bump was placed under the left hip and a tournaquet placed on the left thigh. The left leg was then prepped an draped in the usual sterile fashion. Preoperative antibiotics were given and a timeout performed prior to start. I began by addressing the medial wound, which was about 9 cm in length. This was extended distally a few centimeters to gain better exposure of the fracture. The tibial plafond was revisualized and irrigated thoroughly with antibiotic solution. The bone quality was noted to be poor and there appeared to be some bone missing, but no gross contamination was found. After several liters of fluid were used to clean the wound, the ankle was reduced and attention turned to the lateral side. An incision was made over the lateral malleolus and taken down to the skin and subcutaneous tissue, taking care to identify and protect the superficial peroneal nerve. The fracture site was identified and was comminuted. Hematoma and debris were cleared. A few free fragments of bone were devoid of soft tissue attachments and were removed. The main fracture fragment was oblique in nature and lag screw fixation was attempted but this did not hold. Therefore reduction was maintained with K-wires and a lateral plate was placed. Reduction and proper plate placement were confirmed with x-ray. Locking screws were placed distally and cortical screws placed proximally using standard AO technique. I then addressed the medial malleolus which was accessible through the open wound. The fracture was cleaned of debris and a reduction was held with a clamp. Guidepins were then placed percutaneously and proper reduction and guidepin placement confirmed with x-ray. Two partially threaded cannulated screws were then utilized to compress the medial malleolar fracture site. Following fracture fixation an external rotation stress exam was then performed , demonstrating excellent maintenance of the syndesmosis. Final images were taken in the AP, lateral and oblique planes under image intensification demonstrating anatomic reduction. Wounds were copiously irrigated. The wounds were closed in layers. Patient was placed into a well padded splint, awoken from anesthesia and taken to the post-anesthesia care unit in stable condition.
== END 2018-04-20 14:55 ==
LOC: NEPE 20:03 → NEDA 21:45 → N06 04-17 03:29
PROVIDERS: ADMIT Internal Medicine; ATTEND Internal Medicine
PROC: ORIFANK (2018-04-16 22:18)
DX: I10 Essential (primary) hypertension; D72.829 Elevated white blood cell count, unspecified; Z96.659 Presence of unspecified artificial knee joint; N17.9 Acute kidney failure, unspecified; W01.0XXA Fall on same level from slipping, tripping and stumbling without subsequent striking against object, initial encounter; J44.9 Chronic obstructive pulmonary disease, unspecified; R20.0 Anesthesia of skin; Z23 Encounter for immunization; Z87.891 Personal history of nicotine dependence; Y92.009 Unspecified place in unspecified non-institutional (private) residence as the place of occurrence of the external cause; F10.10 Alcohol abuse, uncomplicated; M10.9 Gout, unspecified; K21.9 Gastro-esophageal reflux disease without esophagitis; Z88.5 Allergy status to narcotic agent; R33.9 Retention of urine, unspecified; S82.84 Bimalleolar fracture of lower leg